=== PATIENT | male | born 1955 | race Caucasian/White ===

== ENCOUNTER 2017-10-13 08:43 | Inpatient (IN) | payer MEDICARE ==
[~2017-10-13] VITALS: Ht 182.9 cm; Wt 124.5 kg
[2017-10-13 08:46] VITALS: BP 205/85; PULSE 102; RESP 16; TEMP 99.9; O2SAT 97
--- NOTE | 2017-10-13 09:09 | PD ---
HPI Chief Complaint: Skin Problem Time Seen by Provider: 08:52 Travel History International Travel<30 days: No Contact w/Intl Traveler<30days: No Traveled to known affect area: No History of Present Illness HPI The patient is a 62-year-old male who presents to the emergency department for evaluation of left foot injury. The patient was evaluated by his garage worker, Dr. Banks, who sent the patient to the emergency department for admission to medicine with IV antibiotics, laboratory evaluation, an MRI of the left foot to evaluate for osteomyelitis. The patient does have a history of diabetes, neuropathy, and previous surgery on the left foot 5 years ago for Charcot. Patient does state he has hardware in the left foot. He does note a previous infection to the right foot with previous surgery. He notes an open wound on the medial aspect left foot several weeks ago which close, however, recently reopened. The patient states he had a culture obtained yesterday, does not know the results. He has not been on antibiotics. He denies any fever , chills, or sweats. Symptoms are mild to moderate, there are no current alleviating factors. The patient's primary physician is Dr. Perera. [facility] Past Medical History Narrative Medical Diabetes, hypertension, hyperlipidemia, neuropathy Diabetes: Yes Past Surgical History Narrative Surgical Left foot surgery Social History Tobacco Use: No Allergies-Medications (Allergen,Severity, Reaction): Coded Allergies: Penicillins (Verified Allergy, Unknown, 10/13/17) azithromycin (Verified Allergy, Unknown, Rash, 10/13/17) clindamycin (Verified Allergy, Unknown, Rash, 10/13/17) doxycycline (Verified Adverse Reaction, Intermediate, N/V, 10/13/17) Reported Meds & Prescriptions Reported Meds & Active Scripts Active Reported Pravastatin 10 Mg Tab 10 Mg PO HS Amlodipine (Amlodipine Besylate) 5 Mg Tab 7.5 Mg PO DAILY Fenofibrate 145 Mg Tab 145 Mg PO HS Dorzolamide-Timolol Opth Drops 22.3-6.8 Mg/Ml Soln 1 Drop EACH EYE BID Aspirin 81 Mg Chew 81 Mg CHEW HS Metoprolol Tartrate 25 Mg Tab 12.5 Mg PO BID Lisinopril 30 Mg Tab 30 Mg PO DAILY Furosemide 40 Mg Tab 40 Mg PO DAILY Glimepiride 1 Mg Tab 0.5 Mg PO DAILY Take with breakfast or first main meal Review of Systems Except as stated in HPI: all other systems reviewed are Neg General / Constitutional: No: Fever Cardiovascular: No: Chest Pain or Discomfort Respiratory: No: Shortness of Breath Gastrointestinal: No: Nausea, Vomiting, Abdominal Pain Musculoskeletal: No: Pain Skin: Positive Other (as noted in the history of present illness) Neurologic: No: Paresthesia, Sensory Disturbance Physical Exam Narrative GENERAL: Awake, alert, pleasant 62-year-old male who appears his stated age and is in no acute respiratory distress. SKIN: Focused skin assessment warm/dry. HEAD: Atraumatic. Normocephalic. EYES: Pupils equal and round. No scleral icterus. No injection or drainage. ENT: No nasal bleeding or discharge. Mucous membranes pink and moist. NECK: Trachea midline. No JVD. CARDIOVASCULAR: Regular, tachycardic with a heart rate of 100. RESPIRATORY: No accessory muscle use. Clear to auscultation. Breath sounds equal bilaterally. GASTROINTESTINAL: Abdomen soft, non-tender, nondistended. Hepatic and splenic margins not palpable. MUSCULOSKELETAL: Postoperative changes noted to the left foot. Open draining lesion to the medial aspect of the distal left foot, open area approximately 1 cm in diameter draining slightly and colored liquid. No tenderness. Minimal surrounding erythema. Vascular insufficiency changes noted to lower extremities bilaterally. NEUROLOGICAL: Awake and alert. No obvious cranial nerve deficits. Motor grossly within normal limits. Normal speech. PSYCHIATRIC: Appropriate mood and affect; insight and judgment normal. Data Data Last Documented VS Vital Signs Date Time Temp Pulse Resp B/P (MAP) Pulse Ox O2 Delivery O2 Flow Rate FiO2 10/13/17 08:46 99.9 102 16 205/85 (125) 97 Orders Orders Complete Blood Count With Diff (10/13/17 09:01) Comprehensive Metabolic Panel (10/13/17 09:01) Westergren Sedimentation Rate (10/13/17 09:01) C-Reactive Protein (Crp) (10/13/17 09:01) Blood Culture (10/13/17 09:01) Lactic Acid (10/13/17 09:01) Act Partial Throm Time (Ptt) (10/13/17 09:01) Prothrombin Time / Inr (Pt) (10/13/17 09:01) Consult Podiatry (10/13/17 ) Mri Foot W&W/O Contrast (10/13/17 ) Wound Culture And Gram Stain (10/13/17 09:01) Vancomycin Inj (Vancomycin Inj) (10/13/17 09:15) Ciprofloxacin 400 Mg Premix (Cipro 400 M (10/13/17 09:15) Electrocardiogram (10/13/17 ) (Hub Use Only)Inp Phy Cons/Ref (10/13/17 ) Admit Order (Ed Use Only) (10/13/17 10:23) Labs Laboratory Tests Test 10/13/17 09:15 White Blood Count 9.0 TH/MM3 Red Blood Count 5.26 MIL/MM3 Hemoglobin 14.3 GM/DL Hematocrit 42.2 % Mean Corpuscular Volume 80.2 FL Mean Corpuscular Hemoglobin 27.2 PG Mean Corpuscular Hemoglobin Concent 34.0 % Red Cell Distribution Width 13.4 % Platelet Count 261 TH/MM3 Mean Platelet Volume 8.4 FL Neutrophils (%) (Auto) 69.4 % Lymphocytes (%) (Auto) 21.6 % Monocytes (%) (Auto) 5.5 % Eosinophils (%) (Auto) 2.7 % Basophils (%) (Auto) 0.8 % Neutrophils # (Auto) 6.3 TH/MM3 Lymphocytes # (Auto) 1.9 TH/MM3 Monocytes # (Auto) 0.5 TH/MM3 Eosinophils # (Auto) 0.2 TH/MM3 Basophils # (Auto) 0.1 TH/MM3 CBC Comment DIFF FINAL Differential Comment Erythrocyte Sedimentation Rate 17 mm/hr Prothrombin Time 10.1 SEC Prothromb Time International Ratio 1.0 RATIO Activated Partial Thromboplast Time 26.4 SEC Blood Urea Nitrogen 26 MG/DL Creatinine 1.65 MG/DL Random Glucose 268 MG/DL Total Protein 7.8 GM/DL Albumin 4.2 GM/DL Calcium Level 10.2 MG/DL Alkaline Phosphatase 90 U/L Aspartate Amino Transf (AST/SGOT) 26 U/L Alanine Aminotransferase (ALT/SGPT) 35 U/L Total Bilirubin 0.5 MG/DL Sodium Level 134 MEQ/L Potassium Level 4.3 MEQ/L Chloride Level 101 MEQ/L Carbon Dioxide Level 23.0 MEQ/L Anion Gap 10 MEQ/L Estimat Glomerular Filtration Rate 42 ML/MIN Lactic Acid Level 2.1 mmol/L C-Reactive Protein 1.40 MG/DL MDM Medical Decision Making Medical Screen Exam Complete: Yes Emergency Medical Condition: Yes Medical Record Reviewed: Yes Interpretation(s) EKG reveals normal sinus rhythm with a rate 80. Nonspecific ST changes. Laboratory Tests Test 10/13/17 09:15 White Blood Count 9.0 TH/MM3 Red Blood Count 5.26 MIL/MM3 Hemoglobin 14.3 GM/DL Hematocrit 42.2 % Mean Corpuscular Volume 80.2 FL Mean Corpuscular Hemoglobin 27.2 PG Mean Corpuscular Hemoglobin Concent 34.0 % Red Cell Distribution Width 13.4 % Platelet Count 261 TH/MM3 Mean Platelet Volume 8.4 FL Neutrophils (%) (Auto) 69.4 % Lymphocytes (%) (Auto) 21.6 % Monocytes (%) (Auto) 5.5 % Eosinophils (%) (Auto) 2.7 % Basophils (%) (Auto) 0.8 % Neutrophils # (Auto) 6.3 TH/MM3 Lymphocytes # (Auto) 1.9 TH/MM3 Monocytes # (Auto) 0.5 TH/MM3 Eosinophils # (Auto) 0.2 TH/MM3 Basophils # (Auto) 0.1 TH/MM3 CBC Comment DIFF FINAL Differential Comment Erythrocyte Sedimentation Rate 17 mm/hr Prothrombin Time 10.1 SEC Prothromb Time International Ratio 1.0 RATIO Activated Partial Thromboplast Time 26.4 SEC Blood Urea Nitrogen 26 MG/DL Creatinine 1.65 MG/DL Random Glucose 268 MG/DL Total Protein 7.8 GM/DL Albumin 4.2 GM/DL Calcium Level 10.2 MG/DL Alkaline Phosphatase 90 U/L Aspartate Amino Transf (AST/SGOT) 26 U/L Alanine Aminotransferase (ALT/SGPT) 35 U/L Total Bilirubin 0.5 MG/DL Sodium Level 134 MEQ/L Potassium Level 4.3 MEQ/L Chloride Level 101 MEQ/L Carbon Dioxide Level 23.0 MEQ/L Anion Gap 10 MEQ/L Estimat Glomerular Filtration Rate 42 ML/MIN Lactic Acid Level 2.1 mmol/L C-Reactive Protein 1.40 MG/DL Last Impressions Foot MRI 10/13/17 0000 Signed Impressions: Service Date/Time: October 10:35 - CONCLUSION: 1. Artifact from metallic hardware obscuring portions of the great toe metatarsal and adjacent soft tissue. Focal cutaneous ulceration/soft tissue defect is immediately medial to the great toe metatarsal shaft. Soft tissue enhancement in this region suggests cellulitis. The metatarsal and this area cannot be effectively evaluated for osteomyelitis due to artifact. Three-phase radionuclide bone scan may be beneficial for further evaluation. 2. Bony fusion across the talonavicular, calcaneocuboid, and subtalar joints as well as the fourth tarsometatarsal joint. Osteoarthritic findings the second, third, and fifth tarsometatarsal joints. Fer Mas MD Differential Diagnosis Differential diagnosis includes osteomyelitis, diabetic foot ulcer, infected foot ulcer, neuropathy, abscess, cellulitis, sepsis. Narrative Course IV was established, labs are drawn and sent, and the patient was placed on cardiac telemetry monitoring and continuous pulse oximetry monitoring. EKG was ordered and interpreted. MRI of the foot with and without contrast was ordered. Doppler pulse to left foot was obtained. Sedimentation rate, CRP, lactic acid, blood culture were sent to lab. Wound culture was sent to lab and the patient received vancomycin 1 g intravenously and Cipro 400 mg intravenously. I discussed the patient with the garage worker, Dr. Pace, who states she will try to place the patient on the OR schedule for Tuesday. Therefore, the patient will be kept nothing by mouth after midnight tonight. We will also order arterial duplex studies per her request. The patient has for healthcare, therefore, the on-call [facility] physician was paged for admission. I discussed the patient with Dr. Bridges who agrees with admission. Sepsis Criteria SIRS Criteria (2 or more): Heart rate over 90 Severe Sepsis (+one): Lactate >2 Physician Communication Physician Communication I discussed the patient with Dr. Bridges who agrees with admission. Diagnosis Primary Impression: Diabetic foot ulcer Qualified Codes: E11.621 - Type 2 diabetes mellitus with foot ulcer; L97.529 - Non-pressure chronic ulcer of other part of left foot with unspecified severity Admitting Information Admitting Physician Requests: Admit Condition: Stable Lance Sotelo MD Oct 13, 2017 09:09
[2017-10-13] MEDS ORDERED: VANCOMYCIN INJ 1,000 MG in SODIUM CHLOR 0.9% 250 ML INJ 250 ML IV ONE (09:15)
[2017-10-13] MEDS ORDERED: CIPROFLOXACIN 400 MG PREMIX 200 ML IV ONE (09:15)
[2017-10-13] MEDS ORDERED: ASPI-516 CHEW (09:36)
[2017-10-13] MEDS ORDERED: DORZ2SOL15 EACH EYE (09:36)
[2017-10-13] MEDS ORDERED: FENO145T2 PO (09:36)
[2017-10-13] MEDS ORDERED: PRAV10TA PO (09:36)
[2017-10-13] MEDS ORDERED: AMLO5TAB2 PO (09:36)
[2017-10-13] MEDS ORDERED: METO25TA3 PO (09:36)
[2017-10-13] MEDS ORDERED: GLIM1TAB PO (09:36)
[2017-10-13] MEDS ORDERED: LISI30TA4 PO (09:36)
[2017-10-13] MEDS ORDERED: FURO40TA PO (09:36)
[2017-10-13 09:42] LABS: AUTOMATED NEUTROPHIL # 6.3 TH/MM3 (1.8-7.7); BASOPHIL # 0.1 TH/MM3 (0-0.2); BASOPHIL % 0.8 % (0.0-2.0); EOSINOPHIL # 0.2 TH/MM3 (0-0.4); EOSINOPHIL % 2.7 % (0.0-4.0); HEMATOCRIT 42.2 % (39.0-51.0); HEMOGLOBIN 14.3 GM/DL (13.0-17.0); LYMPH % 21.6 % (9.0-44.0); LYMPHOCYTE # 1.9 TH/MM3 (1.0-4.8); MEAN CELL VOLUME 80.2 FL (80.0-100.0); MEAN CORPUSCULAR HEMOGLOBIN 27.2 PG (27.0-34.0); MEAN PLATELET VOLUME 8.4 FL (7.0-11.0); MONO % 5.5 % (0.0-8.0); MONOCYTE # 0.5 TH/MM3 (0-0.9); NEUT % 69.4 % (16.0-70.0); PLATELET COUNT 261 TH/MM3 (150-450); RED BLOOD COUNT 5.26 MIL/MM3 (4.50-5.90); RED CELL DISTRIBUTION WIDTH 13.4 % (11.6-17.2)
[2017-10-13 09:49] LABS: PROTHROMBIN TIME - PATIENT 10.1 SEC (9.8-11.6)
[2017-10-13 09:58] LABS: ALBUMIN 4.2 GM/DL (3.4-5.0); ALT (GPT) 35 U/L (12-78); AST (GOT) 26 U/L (15-37); BLOOD UREA NITROGEN 26 MG/DL (7-18); CALCIUM 10.2 MG/DL (8.5-10.1); CHLORIDE 101 MEQ/L (98-107); CREATININE 1.65 MG/DL (0.60-1.30); GLOMERULAR FILTRATION RATE 42 ML/MIN (>89); GLUCOSE,RANDOM 268 MG/DL (74-106); SODIUM (NA) 134 MEQ/L (136-145)
[2017-10-13 10:02] LABS: ALKALINE PHOSPHATASE 90 U/L (45-117); TOTAL BILIRUBIN ADULT 0.5 MG/DL (0.2-1.0); TOTAL PROTEIN 7.8 GM/DL (6.4-8.2)
[2017-10-13] MEDS ORDERED: ACETAMINOPHEN 325 MG TAB PO PRN (11:00)
[2017-10-13] MEDS ORDERED: ONDANSETRON HCL 4 MG/2 ML VIAL IV PRN (11:00)
[2017-10-13] MEDS ORDERED: GADODIAMIDE PF 287 MG/ML 5 ML VIAL (for RAD MRI) IVCONTRAST ONE (11:14)
[2017-10-13] MEDS ORDERED: PILL SPLITTER OTHER PRN (11:15)
--- NOTE | 2017-10-13 11:59 | HHI.HP ---
HPI Service [facility] Hospitalists Primary Care Physician Percy Perera M.D. Admission Diagnosis infected left foot ulcer rule out osteomyelitis Chief Complaint: Left foot infection Travel History International Travel<30 Days: No Contact w/Intl Traveler <30 Da: No Traveled to Known Affected Are: No History of Present Illness Mr. Daniels is a pleasant 62 y/o WM with diabetes mellitus, diabetic neuropathy, charcot foot, HTN and CKD stage 3. [place] [facility] [place] left foot infection. Pt reported that he developed a sore on the medial aspect of his left foot around 3 weeks ago that he thought was related to irritation from his shoe. He states that he thought that this had mostly healed up until a few days ago when the wound opened up and pus started coming out. He was seen as an outpt by his PCP and by his Coremaker Supervisor, Dr. Banks who cultured the pus from the wound and recommended that he come to the hospital for evaluation for osteomyelitis and possible surgical intervention. He had a previous charcot foot surgery in 2012 in [place] and reports that he had some hardware placed at that time. Denies any fevers or chills, nausea/vomiting, chest pain or SOB. In the ED the foot wound was cultured again and he had blood cultures drawn. Pt was given a dose of Vancomycin and Cipro in the ED. Review of Systems Constitutional: DENIES: Fever, Chills Eyes: DENIES: Eye pain Ears, nose, mouth, throat: DENIES: Hearing loss Respiratory: DENIES: Cough, Shortness of breath Cardiovascular: COMPLAINS OF: Lower Extremity Edema (chronic), DENIES: Chest pain, Palpitations Gastrointestinal: DENIES: Abdominal pain, Constipation, Diarrhea, Nausea, Vomiting Genitourinary: DENIES: Hematuria, Dysuria Musculoskeletal: DENIES: Joint pain Integumentary: COMPLAINS OF: Abnormal pigmentation, DENIES: Rash Neurologic: DENIES: Headache Psychiatric: DENIES: Confusion Past Family Social History Past Medical History Diabetes mellitus, type 2 Diabetic neuropathy Charcot foot, left foot CKD, stage III HTN Glaucoma Past Surgical History Charcot foot surgery in 2012 in [place], left foot Right foot surgery with bone removal Reported Medications Pravastatin 10 Mg PO HS Amlodipine 7.5 Mg PO DAILY Fenofibrate 145 Mg PO HS Dorzolamide-Timolol Opth Drops 22.3-6.8 Mg/Ml Soln 1 Drop EACH EYE BID Aspirin Chew 81 Mg CHEW HS Metoprolol Tartrate 12.5 Mg PO BID Lisinopril 30 Mg PO DAILY Furosemide 40 Mg PO DAILY Glimepiride 0.5 Mg PO DAILY Allergies: Coded Allergies: Penicillins (Verified Allergy, Unknown, 10/13/17) azithromycin (Verified Allergy, Unknown, Rash, 10/13/17) clindamycin (Verified Allergy, Unknown, Rash, 10/13/17) doxycycline (Verified Adverse Reaction, Intermediate, N/V, 10/13/17) Family History Noncontributory Social History (+)Alcohol use, 3-4 rum and diet cokes per night Denies any tobacco use Pt lives locally with his , they are from [place] and moved to [place] a few years ago Physical Exam Vital Signs Vital Signs Date Time Temp Pulse Resp B/P (MAP) Pulse Ox O2 Delivery O2 Flow Rate FiO2 10/13/17 08:46 99.9 102 16 205/85 (125) 97 Physical Exam GENERAL: This is a well-nourished, well-developed patient, in no apparent distress. SKIN: No rashes, ecchymoses or lesions. Cool and dry. HEAD: Atraumatic. Normocephalic. No temporal or scalp tenderness. EYES: Pupils equal round and reactive. Extraocular motions intact. No scleral icterus. No injection or drainage. ENT: Nose without bleeding, purulent drainage or septal hematoma. Throat without erythema, tonsillar hypertrophy or exudate. Uvula midline. Airway patent. NECK: Trachea midline. No JVD or lymphadenopathy. Supple, nontender, no meningeal signs. CARDIOVASCULAR: Regular rate and rhythm without murmurs, gallops, or rubs. RESPIRATORY: Clear to auscultation. Breath sounds equal bilaterally. No wheezes , rales, or rhonchi. GASTROINTESTINAL: Abdomen soft, non-tender, nondistended. No hepato-splenomegaly , or palpable masses. No guarding. MUSCULOSKELETAL: Extremities without clubbing, cyanosis, or edema. No joint tenderness, effusion, or edema noted. No calf tenderness. Negative Homans sign bilaterally. NEUROLOGICAL: Awake and alert. Cranial nerves II through XII intact. Motor and sensory grossly within normal limits. Five out of 5 muscle strength in all muscle groups. Normal speech. Laboratory Laboratory Tests Test 10/13/17 09:15 White Blood Count 9.0 Red Blood Count 5.26 Hemoglobin 14.3 Hematocrit 42.2 Mean Corpuscular Volume 80.2 Mean Corpuscular Hemoglobin 27.2 Mean Corpuscular Hemoglobin Concent 34.0 Red Cell Distribution Width 13.4 Platelet Count 261 Mean Platelet Volume 8.4 Neutrophils (%) (Auto) 69.4 Lymphocytes (%) (Auto) 21.6 Monocytes (%) (Auto) 5.5 Eosinophils (%) (Auto) 2.7 Basophils (%) (Auto) 0.8 Neutrophils # (Auto) 6.3 Lymphocytes # (Auto) 1.9 Monocytes # (Auto) 0.5 Eosinophils # (Auto) 0.2 Basophils # (Auto) 0.1 CBC Comment DIFF FINAL Differential Comment Erythrocyte Sedimentation Rate 17 Prothrombin Time 10.1 Prothromb Time International Ratio 1.0 Activated Partial Thromboplast Time 26.4 Blood Urea Nitrogen 26 Creatinine 1.65 Random Glucose 268 Total Protein 7.8 Albumin 4.2 Calcium Level 10.2 Alkaline Phosphatase 90 Aspartate Amino Transf (AST/SGOT) 26 Alanine Aminotransferase (ALT/SGPT) 35 Total Bilirubin 0.5 Sodium Level 134 Potassium Level 4.3 Chloride Level 101 Carbon Dioxide Level 23.0 Anion Gap 10 Estimat Glomerular Filtration Rate 42 Lactic Acid Level 2.1 C-Reactive Protein 1.40 Date/Time Source Procedure Growth Status 10/13/17 09:15 Blood Peripheral Aerobic Blood Culture Pending Received 10/13/17 09:15 Blood Peripheral Anaerobic Blood Culture Pending Received 10/13/17 09:15 Wound Foot Gram Stain Pending Received 10/13/17 09:15 Wound Foot Wound Culture Pending Received Result Diagram: 10/13/1715 10/13/1715 Caprini VTE Risk Assessment Caprini VTE Risk Assessment: Mod/High Risk (score >= 2) Caprini Risk Assessment Model Point Value = 1 Point Value = 2 Point Value = 3 Point Value = 5 Age 41-60 Minor surgery BMI > 25 kg/m2 Swollen legs Varicose veins or History of unexplained or recurrent spontaneous Oral contraceptives or hormone replacement Sepsis (< 1 month) Serious lung disease, including pneumonia (< 1 month) Abnormal pulmonary function Acute myocardial infarction Congestive heart failure (< 1 month) History of inflammatory bowel disease Medical patient at bed rest Age 61-74 Arthroscopic surgery Major open surgery (> 45 min) Laparoscopic surgery (> 45 min) Malignancy Confined to bed (> 72 hours) Immobilizing plaster cast Central venous access Age >= 75 History of VTE Family history of VTE Factor V Leiden Prothrombin [id number] Lupus anticoagulant Anticardiolipin antibodies Elevated serum homocysteine Heparin-induced thrombocytopenia Other congenital or acquired thrombophilia Stroke (< 1 month) Elective arthroplasty Hip, pelvis, or leg fracture Acute spinal cord injury (< 1 month) Prophylaxis Regimen Total Risk Factor Score Risk Level Prophylaxis Regimen 0-1 Low Early ambulation 2 Moderate Order ONE of the following: *Sequential Compression Device (SCD) *Heparin 5000 units SQ BID 3-4 Higher Order ONE of the following medications: *Heparin 5000 units SQ TID *Enoxaparin/Lovenox 40 mg SQ daily (WT < 150 kg, CrCl > 30 mL/min) *Enoxaparin/Lovenox 30 mg SQ daily (WT < 150 kg, CrCl > 10-29 mL/min) *Enoxaparin/Lovenox 30 mg SQ BID (WT < 150 kg, CrCl > 30 mL/min) AND/OR *Sequential Compression Device (SCD) 5 or more Highest Order ONE of the following medications: *Heparin 5000 units SQ TID (Preferred with Epidurals) *Enoxaparin/Lovenox 40 mg SQ daily (WT < 150 kg, CrCl > 30 mL/min) *Enoxaparin/Lovenox 30 mg SQ daily (WT < 150 kg, CrCl > 10-29 mL/min) *Enoxaparin/Lovenox 30 mg SQ BID (WT < 150 kg, CrCl > 30 mL/min) AND *Sequential Compression Device (SCD) Assessment and Plan Problem List: (1) Diabetic foot ulcer ICD Codes: E11.621 - Type 2 diabetes mellitus with foot ulcer; L97.509 - Non- pressure chronic ulcer of other part of unspecified foot with unspecified severity Status: Acute Plan: - Pt is a 62 y/o WM with diabetes mellitus, diabetic neuropathy, Charcot foot, HTN and CKD stage 3. - Pt [place] [facility] [place] for left foot infection. Pt reported that he developed a sore on the medial aspect of his left foot around 3 weeks ago that he thought was related to irritation from his shoe. A few days ago when the wound opened up and pus started coming out. He was seen as an outpt by his PCP and by his Coremaker Supervisor, Dr. Banks who cultured the pus from the wound and recommended that he come to the hospital for evaluation for possible osteomyelitis and surgical intervention. - In the ED the foot wound was cultured again and he had blood cultures drawn. - Pt was given a dose of Vancomycin and Cipro in the ED. - MRI foot ordered and is pending - Podiatry has been consulted from the ED - Pt is planned for surgical intervention tomorrow - NPO after MN except meds - Supportive care - DVT prophylaxis with SCDs (2) Diabetes mellitus type 2, noninsulin dependent ICD Codes: E11.9 - Type 2 diabetes mellitus without complications Status: Chronic Plan: - Hold OHA - NovoLog SSI - Accu checks (3) Hypertension, benign ICD Codes: I10 - Essential (primary) hypertension Status: Chronic Plan: - Cont. home meds Physician Certification 2 Midnight Certification Type: Admission for Inpatient Services Order for Inpatient Services The services are ordered in accordance with Medicare regulations or non- Medicare payer requirements, as applicable. In the case of services not specified as inpatient-only, they are appropriately provided as inpatient services in accordance with the 2-midnight benchmark. Estimated LOS (days): 3 3 days is the estimated time the patient will need to remain in the hospital, assuming treatment plan goals are met and no additional complications. Post-Hospital Plan: Not yet determined Problem Qualifiers (1) Diabetic foot ulcer: Qualified Codes: E11.621 - Type 2 diabetes mellitus with foot ulcer; L97.529 - Non-pressure chronic ulcer of other part of left foot with unspecified severity Suzan Rivas Oct 13, 2017 11:59
[2017-10-13 12:41] VITALS: BP 149/73; PULSE 78; RESP 16; TEMP 98.3; O2SAT 97
[2017-10-13] MEDS: INSULIN ASPART SUPPLEMENTAL SCALE SQ SCH ×3 (13:12→20:33)
--- NOTE | 2017-10-13 13:19 | RADRPT ---
EXAM DATE/TIME: 10/13/2017 10:35 [facility] COMPARISON: No previous studies available for comparison. INDICATIONS : Osteomyelitis. Wound on medial aspect of left foot. CONTRAST: 25 cc Omniscan (gadodiamide) IV MEDICAL HISTORY : Hypertension. Diabetes mellitus type 2. Charcot foot. SURGICAL HISTORY : Bilateral feet. ENCOUNTER: Subsequent ACUITY: 4-6 days PAIN SCORE: 0/10 LOCATION: Left foot. TECHNIQUE: Multiplanar, multisequence MRI examination was performed without contrast and after the intravenous a dministration of gadolinium. FINDINGS: Magnetic susceptibility artifact is seen in the region of the great toe metatarsal, medial cuneiform, navicular, and medial talus. This finding indicates metallic hardware in this region. There is obscu ration of adjacent bony structures and soft tissues. There is evidence of bone fusion across the calc aneocuboid joint, talonavicular joint, subtalar joint, and fourth tarsometatarsal joint. Surgical dia dware also noted at the third fourth and fifth tarsometatarsal joints and the talonavicular joint Medial soft tissue ulceration/defect is seen at the level of the mid great toe metatarsal shaft. The first metatarsal shaft immediately deep to the soft tissue defect is obscured by metallic artifact. T here is ill-defined superficial soft tissue enhancement medially in the region of soft tissue defect suggesting cellulitis. No organized abscess identified in the soft tissues. CONCLUSION: 1. Artifact from metallic hardware obscuring portions of the great toe metatarsal and adjacent soft t issue. Focal cutaneous ulceration/soft tissue defect is immediately medial to the great toe metatarsa l shaft. Soft tissue enhancement in this region suggests cellulitis. The metatarsal and this area can not be effectively evaluated for osteomyelitis due to artifact. Three-phase radionuclide bone scan ma y be beneficial for further evaluation. 2. Bony fusion across the talonavicular, calcaneocuboid, and subtalar joints as well as the fourth ta rsometatarsal joint. Osteoarthritic findings the second, third, and fifth tarsometatarsal joints. Fer Mas MD on October 13, 2017 at 13:05 Board Certified Radiologist. This report was verified electronically.
[2017-10-13 14:43] VITALS: BP 140/65; PULSE 85; RESP 20; TEMP 98.4; O2SAT 94
[2017-10-13 16:00] VITALS: BP 146/70; PULSE 84; RESP 20; TEMP 97.9; O2SAT 94
[2017-10-13] MEDS ORDERED: Vancomycin Consult Pharmacy 1 EA OTHER SCH (16:30)
[2017-10-13] MEDS ORDERED: VANCOMYCIN 1 GM/200 ML PREMIX IV ONE (18:30)
[2017-10-13 20:00] VITALS: BP 148/77; PULSE 75; RESP 20; TEMP 98.5; O2SAT 96
--- NOTE | 2017-10-13 20:23 | EKG ---
Date Performed: 10/13/2017 Time Performed: 09:32:42 PTAGE: 62 years EKG: Sinus rhythm MINIMAL ST DEPRESSION BORDERLINE ECG NO PREVIOUS TRACING DOCTOR: Jorden Seals Interpretating Date/Time 10/13/2017 20:16:30
[2017-10-13] MEDS: FENOFIBRATE 145 MG TAB PO SCH (20:30)
[2017-10-13] MEDS: METOPROLOL TARTRATE 25 MG TAB PO SCH (20:30)
[2017-10-13] MEDS: PRAVASTATIN SOD 10 MG TAB PO SCH (20:30)
[2017-10-13] MEDS: DORZOLAMIDE/TIMOLOL OPTH SOLN 10 ML BTL EACH EYE SCH (20:32)
[2017-10-13 22:23] LABS: HEMOGLOBIN A1C 10.5 % (4.3-6.0)
--- NOTE | 2017-10-13 23:43 | PD.CONS ---
History of Present Illness Service Foot and Ankle Surgery/Podiatry Consult Requested By Reason for Consult Left foot draining ulcer Primary Care Physician Percy Perera M.D. Diagnoses: History of Present Illness 62 year old with PMH of Diabetes mellitus, Diabetic neuropathy, Charcot foot, CKD, stage III, HTN, Glaucoma presents with left foot draining sinus. Patient is seen by Dr. Delgadillo in office. States he has open wound with purulent drainage. He denies N,V,F,Ch. States his A1c was 6.4 however it has now jumped up to 10.9, he was told this on Tuesday. His is present bedside and believes the infection has cause his A1c to increase. Patient states he has not had any problems with this foot in the past. He has had bone removed from the right foot. Review of Systems Constitutional: DENIES: Fatigue, Fever Endocrine: DENIES: Heat/cold intolerance Eyes: DENIES: Blurred vision Ears, nose, mouth, throat: DENIES: Hearing loss Respiratory: DENIES: Cough, Shortness of breath Cardiovascular: DENIES: Chest pain Musculoskeletal: DENIES: Joint pain, Muscle aches Neurologic: DENIES: Headache Psychiatric: DENIES: Anxiety, Mood changes Past Family Social History Allergies: Coded Allergies: Penicillins (Verified Allergy, Unknown, 10/13/17) azithromycin (Verified Allergy, Unknown, Rash, 10/13/17) clindamycin (Verified Allergy, Unknown, Rash, 10/13/17) doxycycline (Verified Adverse Reaction, Intermediate, N/V, 10/13/17) Past Medical History Diabetes mellitus, type 2 Diabetic neuropathy Charcot foot, left foot CKD, stage III HTN Glaucoma Past Surgical History Charcot foot surgery in 2012 in [place], left foot Right foot surgery with bone removal Active Ordered Medications Current Medications Medications (Trade) Dose Ordered Sig/Enrique Route Start Time Stop Time Status Last Admin (Norvasc) 7.5 mg DAILY PO 10/14/17 09:00 (Cosopt 2-0.5% Opth Soln) 1 drop BID EACH EYE 10/13/17 21:00 (Tricor) 145 mg HS PO 10/13/17 21:00 10/13/17 20:30 (Lopressor) 12.5 mg BID PO 10/13/17 21:00 10/13/17 20:30 (Pravachol) 10 mg HS PO 10/13/17 21:00 10/13/17 20:30 (Prinivil) 30 mg DAILY PO 10/14/17 09:00 (Tylenol) 650 mg Q4H PRN PO 10/13/17 11:00 (Zofran Inj) 4 mg Q6H PRN IV 10/13/17 11:00 (NovoLOG SUPPLEMENTAL SCALE) 1 ACHS SLIDING SCALE SQ 10/13/17 12:00 10/13/17 20:33 (Pill Splitter) 1 ea UNSCH PRN OTHER 10/13/17 11:15 Pharmacy Profile Note 0 ml @ 0 mls/hr UNSCH OTHER 10/13/17 16:30 (Flu (Quadrivalent) Vaccine Inj) 0.5 ml ONCE ONCE IM 10/14/17 10:00 10/14/17 10:01 (Pneumovax-23 Inj) 25 mcg ONCE ONCE IM 10/14/17 10:00 10/14/17 10:01 Vancomycin HCl 2000 mg/Sodium Chloride 520 ml @ 250 mls/hr Q18H IV 10/14/17 10:00 Miscellaneous Information SPECIFIC LAB TO BE INDERJIT... ONCE ONCE .XX 10/15/17 23:45 10/15/17 23:46 Physical Exam Vital Signs Vital Signs Date Time Temp Pulse Resp B/P (MAP) Pulse Ox O2 Delivery O2 Flow Rate FiO2 10/13/17 20:00 98.5 75 20 148/77 (100) 96 10/13/17 16:00 97.9 84 20 146/70 (95) 94 10/13/17 14:43 98.4 85 20 140/65 (90) 94 10/13/17 13:49 10/13/17 12:41 98.3 78 16 149/73 (98) 97 Room Air 10/13/17 08:46 99.9 102 16 205/85 (125) 97 Physical Exam GENERAL: This is a well-nourished, well-developed patient, in no apparent distress. SKIN: No rashes, ecchymoses or lesions. Cool and dry. Left foot ulcer with draining sinus. HEAD: Atraumatic. Normocephalic. EYES: Pupils equal round and reactive. Extraocular motions intact. No scleral icterus. No injection or drainage. ENT: Airway patent. NECK: Trachea midline. RESPIRATORY: Non labored breathing. MUSCULOSKELETAL: Pes planus left foot. Rockerbottom deformity left foot. NEUROLOGICAL: Awake and alert. Normal speech. Vasc: DP/PT diminished. DIRECTOR OF INSTITUTIONAL GIVING under 3 secs x5 digits bilateral LE. Mild edema noted to left LE. Neuro: Decreased pinpoint sensation. No hyperalgesia noted. BLE Derm: Midfoot draining sinus measuring 0.4cm x 0.4cm x 0.3cm depth with circumferential tunneling noted. Less than 1cc purulent drainage noted upon compression. sanguinous drainage noted. (+) probe to bone, (+) probe to hardware.No surrounding erythema to draining sinus. No ascending erythema noted. MSK: Pes planus left foot. Rockerbottom deformity LLE. Laboratory Laboratory Tests Test 10/13/17 09:15 White Blood Count 9.0 Red Blood Count 5.26 Hemoglobin 14.3 Hematocrit 42.2 Mean Corpuscular Volume 80.2 Mean Corpuscular Hemoglobin 27.2 Mean Corpuscular Hemoglobin Concent 34.0 Red Cell Distribution Width 13.4 Platelet Count 261 Mean Platelet Volume 8.4 Neutrophils (%) (Auto) 69.4 Lymphocytes (%) (Auto) 21.6 Monocytes (%) (Auto) 5.5 Eosinophils (%) (Auto) 2.7 Basophils (%) (Auto) 0.8 Neutrophils # (Auto) 6.3 Lymphocytes # (Auto) 1.9 Monocytes # (Auto) 0.5 Eosinophils # (Auto) 0.2 Basophils # (Auto) 0.1 CBC Comment DIFF FINAL Differential Comment Erythrocyte Sedimentation Rate 17 Prothrombin Time 10.1 Prothromb Time International Ratio 1.0 Activated Partial Thromboplast Time 26.4 Blood Urea Nitrogen 26 Creatinine 1.65 Random Glucose 268 Total Protein 7.8 Albumin 4.2 Calcium Level 10.2 Alkaline Phosphatase 90 Aspartate Amino Transf (AST/SGOT) 26 Alanine Aminotransferase (ALT/SGPT) 35 Total Bilirubin 0.5 Sodium Level 134 Potassium Level 4.3 Chloride Level 101 Carbon Dioxide Level 23.0 Anion Gap 10 Estimat Glomerular Filtration Rate 42 Hemoglobin A1c 10.5 Lactic Acid Level 2.1 C-Reactive Protein 1.40 Date/Time Source Procedure Growth Status 10/13/17 09:15 Blood Peripheral Aerobic Blood Culture Pending Received 10/13/17 09:15 Blood Peripheral Anaerobic Blood Culture Pending Received 10/13/17 09:15 Wound Foot Gram Stain - Final Resulted 10/13/17 09:15 Wound Foot Wound Culture Pending Resulted Result Diagram: 10/13/17 0915 10/13/17 0915 Imaging Last Impressions Foot MRI 10/13/17 0000 Signed Impressions: Service Date/Time: October 10:35 - CONCLUSION: 1. Artifact from metallic hardware obscuring portions of the great toe metatarsal and adjacent soft tissue. Focal cutaneous ulceration/soft tissue defect is immediately medial to the great toe metatarsal shaft. Soft tissue enhancement in this region suggests cellulitis. The metatarsal and this area cannot be effectively evaluated for osteomyelitis due to artifact. Three-phase radionuclide bone scan may be beneficial for further evaluation. 2. Bony fusion across the talonavicular, calcaneocuboid, and subtalar joints as well as the fourth tarsometatarsal joint. Osteoarthritic findings the second, third, and fifth tarsometatarsal joints. Fer Mas MD Assessment and Plan Assessment and Plan 62 year old male with left foot draining sinus possible OM Patient examined and evaluated with bedside All questions answered 3 phase bone scan ordered to r/o OM as MRI was inhibited by scatter Vascular studies ordered Will await results of vascular studies and Bone scan before proceeding A1c ordered With a self reported A1c of 10.9 patient is not a surgical candidate for hardware removal Will await final pending results and discuss options with patient WB as tolerated to bilateral LE Dress wound with Aquacel Ag2+ and dry sterile dressing Will place wound care orders Celestina Pace DPM Oct 13, 2017 23:43
[2017-10-14] VITALS: BP 111/54; PULSE 64; RESP 20; TEMP 97.6; O2SAT 97
[2017-10-14 04:00] VITALS: BP 142/74; PULSE 69; RESP 20; TEMP 98; O2SAT 94
[2017-10-14 08:07] VITALS: BP 163/77; PULSE 83; RESP 20; TEMP 98; O2SAT 96
--- NOTE | 2017-10-14 09:14 | HHI.PR ---
Subjective Remarks going for bone scan. no problems overnight. Objective Vitals heart reg lung cta abd s/nt ext right foot open wound/ulceration noted Vital Signs Date Time Temp Pulse Resp B/P (MAP) Pulse Ox O2 Delivery O2 Flow Rate FiO2 10/14/17 04:00 98.0 69 20 142/74 (96) 94 10/14/17 00:00 97.6 64 20 111/54 (73) 97 10/13/17 20:00 98.5 75 20 148/77 (100) 96 10/13/17 16:00 97.9 84 20 146/70 (95) 94 10/13/17 14:43 98.4 85 20 140/65 (90) 94 10/13/17 13:49 10/13/17 12:41 98.3 78 16 149/73 (98) 97 Room Air Result Diagram: 10/13/17 0915 10/13/17 0915 A/P Problem List: (1) Diabetic foot ulcer ICD Codes: E11.621 - Type 2 diabetes mellitus with foot ulcer; L97.509 - Non- pressure chronic ulcer of other part of unspecified foot with unspecified severity Status: Acute Plan: - Pt is a 62 y/o WM with diabetes mellitus, diabetic neuropathy, Charcot foot, HTN and CKD stage 3. - Pt reported to the ED at [facility] [place] on 10/13/17 for left foot infection. Pt reported that he developed a sore on the medial aspect of his left foot around 3 weeks ago that he thought was related to irritation from his shoe. A few days ago when the wound opened up and pus started coming out. He was seen as an outpt by his PCP and by his Cabin Supervisor, Dr. Banks who cultured the pus from the wound and recommended that he come to the hospital for evaluation for possible osteomyelitis and surgical intervention. - In the ED the foot wound was cultured again and he had blood cultures drawn. - Pt was given a dose of Vancomycin and Cipro in the ED. - MRI foot unable to determine osteo due to artifact from hardware - bone scan 3 phase ordered and pending - await OR decisions per podiatry. - f/u outpt wound cx's..cont abx and adjust per cx. - (2) Diabetes mellitus type 2, noninsulin dependent ICD Codes: E11.9 - Type 2 diabetes mellitus without complications Status: Chronic Plan: poor control. hgba1c 10.5 will start basal/bolus insulin and titrate as needed. (3) Hypertension, benign ICD Codes: I10 - Essential (primary) hypertension Status: Chronic Plan: - Cont. home meds Problem Qualifiers (1) Diabetic foot ulcer: Qualified Codes: E11.621 - Type 2 diabetes mellitus with foot ulcer; L97.529 - Non-pressure chronic ulcer of other part of left foot with unspecified severity Naif Bridges MD Oct 14, 2017 09:14
[2017-10-14] MEDS: METOPROLOL TARTRATE 25 MG TAB PO SCH ×2 (09:36→21:48)
[2017-10-14] MEDS: amLODIPine BESYLATE 5 MG TAB PO SCH (09:36)
[2017-10-14] MEDS: LISINOPRIL 10 MG TAB PO SCH (09:36)
[2017-10-14] MEDS: DORZOLAMIDE/TIMOLOL OPTH SOLN 10 ML BTL EACH EYE SCH ×2 (09:37→21:48)
[2017-10-14] MEDS: INSULIN ASPART SUPPLEMENTAL SCALE SQ SCH ×4 (09:37→21:50)
[2017-10-14] MEDS ORDERED: PNEUMOCOCCAL POLYVALENT INJ 25 MCG/0.5 ML SYR IM ONE (10:00)
[2017-10-14] MEDS ORDERED: INFLUENZA VIRUS VACCINE (QUADRIVALENT) 0.5 ML SYR IM ONE (10:00)
[2017-10-14] MEDS: VANCOMYCIN INJ 2,000 MG in SODIUM CHLORID 0.9% 500 ML INJ 500 ML IV SCH (10:20)
[2017-10-14 12:07] VITALS: BP 152/76; PULSE 82; RESP 20; TEMP 98.2; O2SAT 97
--- NOTE | 2017-10-14 13:29 | RADRPT ---
EXAM DATE/TIME: 10/13/2017 00:00 [facility] COMPARISON: No previous studies available for comparison. INDICATIONS : Infected left foot ulcer rule out osteomyelitis TECHNIQUE: Five-station segmental examination of the lower extremities was performed. Pulsed-cuff waveform tracings and pressures were recorded. Ankle-brachial indices and toe-brachial indices were calculated. PRESSURES (mmHg): Brachial (arm): Right iv site Left 154 Lower Thigh: Right 106 Left 153 Calf: Right 118 Left 149 Ankle: Right 95 Left 153 Toe: Right 79 Left 81 LUCIA: Right 0.62 Left 0.99 TBI: Right 0.51 Left 0.53 PULSED CUFF WAVEFORMS: There is diminished pulse wave tracings below the knee on the right when compared to the left. LUCIA o n the right is 0 0.62.. LUCIA on the left is 0.99. CONCLUSION: MRI suspicious for inflow disease much worse on the right than the left. LUCIA on the left is 0.99. G iven the hardware and residual blood flow and tagged white cell study may offer conclusive informatio n. Alberto Farmer MD FACR on October 14, 2017 at 13:24 Board Certified Radiologist. This report was verified electronically.
[2017-10-14 16:07] VITALS: BP 152/72; PULSE 85; RESP 20; TEMP 98.6; O2SAT 95
--- NOTE | 2017-10-14 17:58 | RADRPT ---
EXAM DATE/TIME: 10/14/2017 14:10 [facility] COMPARISON: MRI FOOT LEFT W & W/O CONTRAST, October 13, 2017, 10:35. PRIOR BONE SCANS: No correlative bone scan available for comparison. INDICATIONS : Left foot wound of medial aspect of foot. Left foot surgery in 2012. DOSE: 31.2 mCi Tc99m MDP IV IMAGING: SPECT/CT imaging with fusion was performed. MEDICAL HISTORY : Hypertension. Diabetes mellitus type 2. Renal failure, chronic. Charcot foot. SURGICAL HISTORY : Right foot surgery. ENCOUNTER: Initial ACUITY: 1 day PAIN SCALE: 0/10 LOCATION: Left Foot. TECHNIQUE: Bone scan was performed in sagittal, axial and coronal planes. Attenuation correction was performed with computed tomography and both the attenuation correction and non-attenuation corrected data sets were reviewed. FINDINGS: On today's examination, there is increased flow, increased blood pool and increased uptake of tracer activity along the medial aspect of the left foot. Delayed images demonstrate uptake predominantly in volving the first metatarsal. There is hardware for previous internal fixation involving the first me tatarsal the left foot. There is hardware along the lateral aspect of left foot which does not demons trate the same level uptake. The increased blood flow, blood pool and delayed images to the first met atarsal is suspicious for osteomyelitis. However, I would recommend a gallium scan to evaluate the hoa ne gallium ratio to exclude increased uptake secondary to possible loosening of the hardware. There i s a uptake at the level of the right ankle and left ankle which appears to be related to primary dege nerative changes. CONCLUSION: 1. The three-phase bone scan demonstrates increased blood flow, increased blood pool and increased tr acer activity in the late images specifically involving the first left metatarsal. Osteomyelitis woul d be the primary consideration. However, recommend a gallium scan to evaluate the bone gallium ratio. 2. There is some increased delayed uptake at both mortise joints suggestive of primary bony degenerat karl changes. Tristan Davis MD on October 14, 2017 at 17:45 Board Certified Radiologist. This report was verified electronically.
[2017-10-14 20:00] VITALS: BP 139/66; PULSE 84; RESP 20; TEMP 98.4; O2SAT 96
[2017-10-14] MEDS ORDERED: INSULIN DETEMIR 100 UNITS/ML VIAL SQ SCH (21:00)
[2017-10-14] MEDS: PRAVASTATIN SOD 10 MG TAB PO SCH (21:48)
[2017-10-14] MEDS: FENOFIBRATE 145 MG TAB PO SCH (21:48)
[2017-10-15] VITALS: BP 139/62; PULSE 74; RESP 20; TEMP 98; O2SAT 95
[2017-10-15] MEDS: VANCOMYCIN INJ 2,000 MG in SODIUM CHLORID 0.9% 500 ML INJ 500 ML IV SCH (02:49)
[2017-10-15 04:00] VITALS: BP 139/62; PULSE 75; RESP 20; TEMP 98.2; O2SAT 95
[2017-10-15 08:45] VITALS: BP 153/80; PULSE 71; RESP 20; TEMP 98.7; O2SAT 96
[2017-10-15] MEDS: INSULIN ASPART SUPPLEMENTAL SCALE SQ SCH ×4 (08:47→22:19)
[2017-10-15] MEDS: DORZOLAMIDE/TIMOLOL OPTH SOLN 10 ML BTL EACH EYE SCH ×2 (08:48→21:00)
[2017-10-15] MEDS: amLODIPine BESYLATE 5 MG TAB PO SCH (08:48)
[2017-10-15] MEDS: METOPROLOL TARTRATE 25 MG TAB PO SCH ×2 (08:48→22:17)
[2017-10-15] MEDS: LISINOPRIL 10 MG TAB PO SCH (08:48)
--- NOTE | 2017-10-15 10:18 | HHI.PR ---
Subjective Remarks complaining about the food at [facility] Objective Vitals heart reg lung cta abd s/nt ext left foot open wound no purelent drainage Vital Signs Date Time Temp Pulse Resp B/P (MAP) Pulse Ox O2 Delivery O2 Flow Rate FiO2 10/15/17 08:45 98.7 71 20 153/80 (104) 96 10/15/17 04:00 98.2 75 20 139/62 (87) 95 10/15/17 00:00 98.0 74 20 139/62 (87) 95 10/14/17 20:00 98.4 84 20 139/66 (90) 96 10/14/17 16:07 98.6 85 20 152/72 (98) 95 10/14/17 12:07 98.2 82 20 152/76 (101) 97 Result Diagram: 10/13/1715 10/13/17 0915 A/P Problem List: (1) Diabetic foot ulcer ICD Codes: E11.621 - Type 2 diabetes mellitus with foot ulcer; L97.509 - Non- pressure chronic ulcer of other part of unspecified foot with unspecified severity Status: Acute Plan: - Pt is a 62 y/o WM with diabetes mellitus, diabetic neuropathy, Charcot foot with hardware since 2012, HTN and CKD stage 3. - Pt reported to the ED at [facility] on 10/13/17 for left foot infection. Pt reported that he developed a sore on the medial aspect of his left foot around 3 weeks ago that he thought was related to irritation from his shoe. A few days ago when the wound opened up and pus started coming out. He was seen as an outpt by his PCP and by his Chief Librarian Branch Or Department, Dr. Banks who cultured the pus from the wound and recommended that he come to the hospital for evaluation for possible osteomyelitis and surgical intervention. - In the ED the foot wound was cultured again and he had blood cultures drawn. - Pt was given a dose of Vancomycin and Cipro in the ED. - MRI foot unable to determine osteo due to artifact from hardware - bone scan 3 phase ordered and concern for 1st metatarsal osteo - discussed with podiatry. consulted vascular for abnormal doppler - ID consulted for assistance given complexity of osteo, hardware, so far ngtd - Have looked for cx's taken last week by podiatry office and pcp office...no results yet - await OR decisions per podiatry. - more aggressive bg control. podiatry concerned about opening up foot to remove hardware with hgba1c of 10.5 (2) Diabetes mellitus type 2, noninsulin dependent ICD Codes: E11.9 - Type 2 diabetes mellitus without complications Status: Chronic Plan: poor control. hgba1c 10.5 will start basal/bolus insulin and titrate as needed. (3) Hypertension, benign ICD Codes: I10 - Essential (primary) hypertension Status: Chronic Plan: - Cont. home meds Problem Qualifiers (1) Diabetic foot ulcer: Qualified Codes: E11.621 - Type 2 diabetes mellitus with foot ulcer; L97.529 - Non-pressure chronic ulcer of other part of left foot with unspecified severity Naif Bridges MD Oct 15, 2017 10:18
[2017-10-15] MEDS: INSULIN DETEMIR 100 UNITS/ML VIAL SQ SCH ×2 (10:28→22:18)
[2017-10-15 12:24] VITALS: BP 141/85; PULSE 71; RESP 20; TEMP 98.4; O2SAT 97
--- NOTE | 2017-10-15 14:53 | MB ---
cc: FLACO GOODWIN MD DATE OF CONSULTATION: 10/15/2017. REASON FOR CONSULTATION: Diabetes mellitus. Charcot's joint. Osteomyelitis of the left foot. Hypertension. Peripheral vascular disease. HISTORY OF PRESENT ILLNESS: This 62-year-old gentleman with a known Charcot's foot and complex medical history presents with a left medial aspect of the ankle draining sinus. He was seen by Dr. Banks in the office and there was a drainage which is purulent noted. The patient had a fever and was admitted to the hospital. The question arises about his vascular status and possible implications. PAST MEDICAL HISTORY: 1. Diabetes mellitus. 2. Neuropathy. 3. Poorly controlled A1c. 4. Charcot's joint of the left foot of longstanding. 5. Some sort of infection of the right foot before. 6. Hypertension. 7. Glaucoma. PAST SURGICAL HISTORY: Right foot surgery with some of bone removal and then left foot Charcot's joint stabilization with hardware in 2012. SOCIAL HISTORY: The patient does not smoke any more since 1999. He does not drink. PHYSICAL EXAMINATION: GENERAL: The physical exam reveals a 62-year-old male. HEAD, EYES, EARS, NOSE, THROAT: Normocephalic. No trauma to the head. Pupils equal and reactive. Extraocular muscles intact. NECK: The neck is supple. Bilateral carotid pulses and bilateral faint bruits. No masses in the neck. CHEST: Bilateral breath sounds decreased over both lung arias consistent with some degree of mild to moderate COPD. HEART: Regular rhythm. ABDOMEN: Soft. Active bowel sounds. No rebound. No guarding. EXTREMITIES: The patient has weak palpable femoral pulses and weak palpable dorsalis pedis on the right. On the left, there are Dopplerable popliteal and dorsalis pedis pulses but the posterior tibial is absent. The patient clearly has a left Charcot's joint, which is causing severe deformity of the foot, and I am not sure how he can even walk on this. NEUROLOGIC: Neurologically he is grossly intact with decreased sensation in both legs and feet. There is an opening which is only about 0.5 cm in diameter but I can see it is going deep in and clearly going to the hardware. RECOMMENDATIONS: At this point, we are going to evaluate the patient's vascular supply to this area because every level of vascular improvement that he can get will be essential. Unfortunately diabetics usually get small vessel disease limited to the pattern below the knee, occlusive changes involving the anterior tibial and posterior tibial and peroneal arteries while the proximal inflow is usually spared. In addition, he is somewhat obese so it is hard to palpate the pulses although I do not believe based on clinical exam that patient has any degree of inflow disease that would require surgical intervention. As far as the Charcot's joint is concerned, this is clearly going into the hardware so the patient has osteomyelitis by definition. At some point, he will need to have hardware removed but I agree that his A1c is high, so right now this may not be the best time to do it. I have explained to the patient there is a high risk of him losing the leg below the knee and needing a below-knee amputation in the near future is very high. I will continue to follow the patient with you. Thank you very much for the referral. Flaco AGUILAR/CLARICE /1:16 PM /2:39 PM ERASMO
[2017-10-15] MEDS: SODIUM CHLOR 0.9% 1000 ML INJ 1,000 ML IV SCH ×2 (14:57→22:21)
[2017-10-15 16:41] VITALS: BP 169/82; PULSE 87; RESP 20; TEMP 99.1; O2SAT 96
--- NOTE | 2017-10-15 16:50 | RADRPT ---
EXAM DATE/TIME: 10/15/2017 15:45 [facility] COMPARISON: No previous studies available for comparison. INDICATIONS : Bruit. MEDICAL HISTORY : Hypercholesterolemia. Hypertension. Glasses. Diabetes. Infection in perineum. SURGICAL HISTORY : Tonsillectomy. Bilateral feet surgery. ENCOUNTER: Initial ACUITY: 1 day PAIN SCORE: 2/10 LOCATION: Bilateral neck PEAK SYSTOLIC VELOCITIES (cm/sec): ICA/CCA RATIO: Right: 0.9 Left: 1.5 ICA: Right: 69.9 Left: 99.2 CCA: Right: 79.7 Left: 64.4 ECA: Right: 79.8 Left: 96.5 VERTEBRAL: Right: 55.6 antegrade Left: 49.0 antegrade Elevated flow velocities and ICA/CCA ratios have been found to correlate with increased degrees of vessel stenosis, calculated as percentage of diameter relative to a normal segment of distal ICA/CCA FINDINGS: RIGHT CAROTID: Mild non-shadowing plaque formation in the proximal internal carotid artery. No significant stenosis is visualized. The waveforms are within normal limits. LEFT CAROTID: Mild plaque formation in the carotid bulb and proximal internal carotid artery. No significant steno sis is visualized. The waveforms are within normal limits. VERTEBRAL ARTERIES: Antegrade flow is seen in both vertebral arteries. MISCELLANEOUS: None. CONCLUSION: Mild bilateral noncalcified plaque formation hemodynamic profile characteristic of less than 50% sten osis. Kapil Lorenzana MD on October 15, 2017 at 16:45 Board Certified Radiologist. This report was verified electronically.
--- NOTE | 2017-10-15 18:54 | PD.ID.CON ---
History of Present Illness Service Infectious disease Consult Requested By Dr. Hays Reason for Consult Evaluation and management of left foot osteomyelitis possible Primary Care Physician Percy Perera M.D. Diagnoses: History of Present Illness Mr. Daniels is a pleasant 62 y/o WM with diabetes mellitus, diabetic neuropathy, charcot foot, HTN and CKD stage 3. Pt reported to the ED at [facility] on 10/13/17 for left foot infection. Pt reported that he developed a sore on the medial aspect of his left foot around 3 weeks ago that he thought was related to irritation from his shoe. He states that he thought that this had mostly healed up until a few days ago when the wound opened up and pus started coming out. He was seen as an outpt by his PCP and by his Hand Leather Trimmer, Dr. Banks who cultured the pus from the wound and recommended that he come to the hospital for evaluation for osteomyelitis and possible surgical intervention. He had a previous charcot foot surgery in 2012 in [place] and reports that he had some hardware placed at that time. Denies any fevers or chills, nausea/vomiting, chest pain or SOB. In the ED the foot wound was cultured again and he had blood cultures drawn. Pt was given a dose of Vancomycin and Cipro in the ED. Pertinent positives and negatives: Prior history of right foot infection treated with IV antibiotics using a PICC line in [place] Denies any fever or chills or night sweats. Hardware in the left foot where there is concern for osteomyelitis. Review of Systems Constitutional: DENIES: Diaphoretic episodes, Fatigue, Fever, Weight gain, Weight loss, Chills, Dizziness, Change in appetite, Night Sweats Endocrine: DENIES: Heat/cold intolerance, Polydipsia, Polyuria, Polyphagia Eyes: DENIES: Blurred vision, Diplopia, Eye inflammation, Eye pain, Vision loss , Photosensitivity, Double Vision Ears, nose, mouth, throat: DENIES: Tinnitus, Hearing loss, Vertigo, Nasal discharge, Oral lesions, Throat pain, Hoarseness, Ear Pain, Running Nose, Epistaxis, Sinus Pain, Toothache, Odynophagia Respiratory: DENIES: Apneas, Cough, Snoring, Wheezing, Hemoptysis, Sputum production, Shortness of breath Cardiovascular: DENIES: Chest pain, Palpitations, Syncope, Dyspnea on Exertion , PND, Lower Extremity Edema, Orthopnea, Claudication Gastrointestinal: DENIES: Abdominal pain, Black stools, Bloody stools, Constipation, Diarrhea, Nausea, Vomiting, Difficulty Swallowing, Anorexia Genitourinary: DENIES: Sexual dysfunction, Urinary frequency, Urinary incontinence, Urgency, Hematuria, Dysuria, Nocturia, Penile Discharge, Testicular Pain, Testicular Swelling Musculoskeletal: DENIES: Joint pain, Muscle aches, Stiffness, Joint Swelling, Back pain, Neck pain Integumentary: DENIES: Abnormal pigmentation, Nail changes, Pruritus, Rash Hematologic/lymphatic: DENIES: Bruising, Lymphadenopathy Immunologic/allergic: DENIES: Eczema, Urticaria Neurologic: DENIES: Abnormal gait, Headache, Localized weakness, Paresthesias, Seizures, Speech Problems, Tremor, Poor Balance Psychiatric: DENIES: Anxiety, Confusion, Mood changes, Depression, Hallucinations, Agitation, Suicidal Ideation, Homicidal Ideation, Delusions Except as stated in HPI: all other systems reviewed are Neg Past Family Social History Allergies: Coded Allergies: Penicillins (Verified Allergy, Unknown, 10/13/17) azithromycin (Verified Allergy, Unknown, Rash, 10/13/17) clindamycin (Verified Allergy, Unknown, Rash, 10/13/17) doxycycline (Verified Adverse Reaction, Intermediate, N/V, 10/13/17) Past Medical History Diabetes mellitus, type 2 Diabetic neuropathy Charcot foot, left foot CKD, stage III HTN Glaucoma Prior history of right foot infection treated with IV antibiotics using a PICC line. Past Surgical History Charcot foot surgery in 2013 in [place], left foot Right foot surgery with bone removal Reported Medications No antibiotics given to patient prior to admission. Reported Meds & Active Scripts Active Reported Pravastatin 10 Mg Tab 10 Mg PO HS Amlodipine (Amlodipine Besylate) 5 Mg Tab 7.5 Mg PO DAILY Fenofibrate 145 Mg Tab 145 Mg PO HS Dorzolamide-Timolol Opth Drops 22.3-6.8 Mg/Ml Soln 1 Drop EACH EYE BID Aspirin 81 Mg Chew 81 Mg CHEW HS Metoprolol Tartrate 25 Mg Tab 12.5 Mg PO BID Lisinopril 30 Mg Tab 30 Mg PO DAILY Furosemide 40 Mg Tab 40 Mg PO DAILY Glimepiride 1 Mg Tab 0.5 Mg PO DAILY Take with breakfast or first main meal Active Ordered Medications Current Medications Medications (Trade) Dose Ordered Sig/Enrique Route Start Time Stop Time Status Last Admin (Norvasc) 7.5 mg DAILY PO 10/14/17 09:00 10/15/17 08:48 (Cosopt 2-0.5% Opth Soln) 1 drop BID EACH EYE 10/13/17 21:00 10/15/17 08:48 (Tricor) 145 mg HS PO 10/13/17 21:00 10/14/17 21:48 (Lopressor) 12.5 mg BID PO 10/13/17 21:00 10/15/17 08:48 (Pravachol) 10 mg HS PO 10/13/17 21:00 10/14/17 21:48 (Prinivil) 30 mg DAILY PO 10/14/17 09:00 10/15/17 08:48 (Tylenol) 650 mg Q4H PRN PO 10/13/17 11:00 (Zofran Inj) 4 mg Q6H PRN IV 10/13/17 11:00 (NovoLOG SUPPLEMENTAL SCALE) 1 ACHS SLIDING SCALE SQ 10/13/17 12:00 10/15/17 17:51 (Pill Splitter) 1 ea UNSCH PRN OTHER 10/13/17 11:15 (Levemir Inj) 15 units Q12HR SQ 10/15/17 09:00 10/15/17 10:28 Sodium Chloride 1,000 ml @ 100 mls/hr Q10H IV 10/15/17 13:30 10/15/17 14:57 Family History Noncontributory to current infectious disease problems Social History Does consume alcohol Alcohol use, 3-4 rum and diet cokes per night Denies any tobacco use Pt lives locally with his , they are from [place] and moved to [place] a few years ago Physical Exam Vital Signs Vital Signs Date Time Temp Pulse Resp B/P (MAP) Pulse Ox O2 Delivery O2 Flow Rate FiO2 10/15/17 16:41 99.1 87 20 169/82 (111) 96 10/15/17 12:24 98.4 71 20 141/85 (103) 97 10/15/17 08:45 98.7 71 20 153/80 (104) 96 10/15/17 04:00 98.2 75 20 139/62 (87) 95 10/15/17 00:00 98.0 74 20 139/62 (87) 95 10/14/17 20:00 98.4 84 20 139/66 (90) 96 Physical Exam GENERAL: This is a well-nourished, well-developed patient, in no apparent distress. SKIN: No rashes, ecchymoses or lesions. Cool and dry. HEAD: Atraumatic. Normocephalic. No temporal or scalp tenderness. EYES: Pupils equal round and reactive. Extraocular motions intact. No scleral icterus. No injection or drainage. ENT: Nose without bleeding, purulent drainage or septal hematoma. Throat without erythema, tonsillar hypertrophy or exudate. Uvula midline. Airway patent. NECK: Trachea midline. Supple, nontender, no meningeal signs. CARDIOVASCULAR: Heart sounds audible. RESPIRATORY: Clear to auscultation. Breath sounds equal bilaterally. No wheezes , rales, or rhonchi. GASTROINTESTINAL: Abdomen soft, non-tender, nondistended. Obese MUSCULOSKELETAL: Left lower extremity with Charcot deformity chronic changes. Decreased fine touch sensation. On the medial aspect of the foot on the dorsum there was a very small opening with minimal if any discharge noted. There was minimal erythema around it but no tenderness and no induration noted. NEUROLOGICAL: Awake and alert. Decreased fine touch sensation in his bilateral lower extremity Psych cooperative IV line sites with no evidence of infection. Laboratory Date/Time Source Procedure Growth Status 10/13/17 09:15 Blood Peripheral Aerobic Blood Culture - Preliminary NO GROWTH IN 2 DAYS Resulted 10/13/17 09:15 Blood Peripheral Anaerobic Blood Culture - Preliminary NO GROWTH IN 2 DAYS Resulted 10/13/17 09:15 Wound Foot Gram Stain - Final Complete 10/13/17 09:15 Wound Foot Wound Culture - Final HEAVY GROWTH NORMAL SKIN JANET... Complete Result Diagram: 10/13/1715 10/13/1715 Imaging Last Impressions Carotid Artery Ultrasound 10/15/17 0000 Signed Impressions: Service Date/Time: Sunday, October 15, 2017 15:45 - CONCLUSION: Mild bilateral noncalcified plaque formation hemodynamic profile characteristic of less than 50%% stenosis. Kapil Lorenzana MD Bone Scan Nuclear Medicine 10/14/17 1410 Signed Impressions: Service Date/Time: Saturday, October 14, 2017 14:10 - CONCLUSION: 1. The three-phase bone scan demonstrates increased blood flow, increased blood pool and increased tracer activity in the late images specifically involving the first left metatarsal. Osteomyelitis would be the primary consideration. However, recommend a gallium scan to evaluate the bone gallium ratio. 2. There is some increased delayed uptake at both mortise joints suggestive of primary bony degenerative changes. Tristan Davis MD Foot MRI 10/13/17 0000 Signed Impressions: Service Date/Time: October 10:35 - CONCLUSION: 1. Artifact from metallic hardware obscuring portions of the great toe metatarsal and adjacent soft tissue. Focal cutaneous ulceration/soft tissue defect is immediately medial to the great toe metatarsal shaft. Soft tissue enhancement in this region suggests cellulitis. The metatarsal and this area cannot be effectively evaluated for osteomyelitis due to artifact. Three-phase radionuclide bone scan may be beneficial for further evaluation. 2. Bony fusion across the talonavicular, calcaneocuboid, and subtalar joints as well as the fourth tarsometatarsal joint. Osteoarthritic findings the second, third, and fifth tarsometatarsal joints. Fer Mas MD Assessment and Plan Assessment and Plan Left foot possible osteomyelitis versus chronic deformity from Charcot. CRP very minimally elevated. Likely chronic osteomyelitis at this point. diabetes mellitus, diabetic neuropathy, charcot foot, HTN CKD stage 3. Recs: DC Vanco IV Cultures obtained are from superficial wound and not indicative of deeper infection. D/w she does not plan on hardware removal at this point as A1C elevated. She would like to treat this osteomyelitis. I recommended at least a bone biopsy (without any antibiotics) to help guide therapy as superficial cultures are likely colonization. Follow CTA results to see if vascular disease. Reviewed note as well as notes. No PICC till cleared by ID. This appears to be chronic osteomyelitis and decision of po vs IV antibiotics based on path and micro from Bone biopsy. Follow cultures Follow clinically. Libby Rivera MD Oct 15, 2017 18:54
[2017-10-15] MEDS ORDERED: IOHEXOL 350 MG/ML 10 ML VIAL (for RAD DIAG) IVCONTRAST ONE (18:57)
[2017-10-15 20:00] VITALS: BP 148/73; PULSE 78; RESP 16; TEMP 98.1; O2SAT 95
--- NOTE | 2017-10-15 21:11 | RADRPT ---
EXAM DATE/TIME: 10/15/2017 18:53 [facility] COMPARISON: ARTERIAL SEGMENTAL DOPPLER COMP W/TBI, October 13, 2017, 0:00. INDICATIONS : Peripheral vascular disease. IV CONTRAST: 100 cc Omnipaque 350 (iohexol) IV RADIATION DOSE: 6.53 CTDIvol (mGy) MEDICAL HISTORY : Hypertension. Cardiovascular disease diabetes SURGICAL HISTORY : None. ENCOUNTER: Initial ACUITY: 1 day PAIN SCALE: 0/10 LOCATION: Bilateral abdomen TECHNIQUE: Volumetric scanning was performed using a multi-row detector CT scanner. The data was post processed with a variety of visualization algorithms including full volume maximum intensity projection, multi -planar sliding thin slab reformation, curved planar reformation, and surface rendering techniques. Using automated exposure control and adjustment of the mA and/or kV according to patient size, radiat ion dose was kept as low as reasonably achievable to obtain optimal diagnostic quality images. DICO M format image data is available electronically for review and comparison. FINDINGS: There is diffuse wall calcification throughout the arterial structures. ABDOMINAL AORTA: The lumen is smooth without significant narrowing or aneurysmal dilation. The proximal celiac and reyes perior mesenteric arteries are patent and normal in diameter. There are solitary renal arteries bila terally without gross abnormality. . BIFURCATION: Normal. RIGHT PELVIS: The right common iliac, internal iliac, and external iliac vessels are patent without luminal irregul arity. LEFT PELVIS: The left common iliac, internal iliac, and external iliac vessels are patent and without significant stenosis. RIGHT THIGH: The superficial femoral and profunda vessels are patent without luminal irregularity. In the distal one third of the thigh, there are multiple calcified plaque causing 50-70% luminal narrowing. LEFT THIGH: The superficial femoral and profunda vessels are patent without luminal irregularity. RIGHT KNEE: The distal femoral and popliteal arteries are patent without luminal irregularity. LEFT KNEE: The distal femoral and popliteal arteries are patent without luminal irregularity. RIGHT LEG: The trifurcation is intact. There is three-vessel runoff to the distal one third of the calf. LEFT LEG: The trifurcation is intact. There is two-vessel runoff to the distal one third of the calf. CONCLUSION: 1. Diffuse arteriosclerotic calcification throughout the vascular structures. 2. Multifocal stenotic lesions in the distal one third of the right thigh 50-70% narrowing. 3. Trifurcation vessels are intact bilaterally and there is three-vessel runoff on the right and 2 ve ssel runoff on the left. Kapil Lorenzana MD on October 15, 2017 at 21:02 Board Certified Radiologist. This report was verified electronically.
[2017-10-15] MEDS: FENOFIBRATE 145 MG TAB PO SCH (22:18)
[2017-10-15] MEDS: PRAVASTATIN SOD 10 MG TAB PO SCH (22:18)
[2017-10-15] MEDS ORDERED: PHARMACY ORDERED LAB ONE (23:45)
[2017-10-16] VITALS: BP 138/66; PULSE 74; RESP 16; TEMP 98.2; O2SAT 95
[2017-10-16 04:00] VITALS: BP 130/82; PULSE 72; RESP 18; TEMP 98.1; O2SAT 95
[2017-10-16] MEDS: INSULIN ASPART SUPPLEMENTAL SCALE SQ SCH ×4 (08:00→21:00)
[2017-10-16] MEDS: METOPROLOL TARTRATE 25 MG TAB PO SCH ×2 (08:04→21:29)
[2017-10-16] MEDS: LISINOPRIL 10 MG TAB PO SCH (08:04)
[2017-10-16] MEDS: amLODIPine BESYLATE 5 MG TAB PO SCH (08:04)
[2017-10-16] MEDS: DORZOLAMIDE/TIMOLOL OPTH SOLN 10 ML BTL EACH EYE SCH ×2 (08:04→21:00)
[2017-10-16] MEDS: SODIUM CHLOR 0.9% 1000 ML INJ 1,000 ML IV SCH ×2 (08:07→19:30)
[2017-10-16] MEDS: INSULIN DETEMIR 100 UNITS/ML VIAL SQ SCH ×2 (08:44→23:48)
[2017-10-16 08:48] VITALS: BP 148/87; PULSE 77; RESP 20; TEMP 98.5; O2SAT 94
--- NOTE | 2017-10-16 11:28 | PD.CAR.PN ---
CVT Progress Note Subjective/Hospital Course: 10/16/2017 Patient with draining sinus from the left Charcot's joint Due to patient's habitus physical vascular exam is somewhat difficult. CTA with runoff reveals fairly reasonable vessels as far as structure and no hemodynamically significant inflow disease stenoses. Patient has severe calcifications throughout his vascular system as would be expected from the entire clinical picture and history. On the right side patient has about 50% stenosis of the distal SFA which is not flow-limiting at this time while the left side does not reveal any hemodynamically significant stenoses He has scattered small vessel disease however blood flow is maintained via at least 2 vessels beyond trifurcation on each side In face of the above patient has no significant vascular disease that would require surgical correction On the other hand, Charcot's joint is a challenge in its own especially with a hardware in it and in the future patient may end up with below-knee amputation As far as carotid ultrasound is concerned patient has mild atherosclerotic disease but no hemodynamically significant narrowing on either side Objective: Vital Signs Date Time Temp Pulse Resp B/P (MAP) Pulse Ox O2 Delivery O2 Flow Rate FiO2 10/16/17 08:48 98.5 77 20 148/87 (107) 94 10/16/17 04:00 98.1 72 18 130/82 (98) 95 10/16/17 04:00 Room Air 10/16/17 00:00 98.2 74 16 138/66 (90) 95 10/16/17 00:00 Room Air 10/15/17 20:00 98.1 78 16 148/73 (98) 95 10/15/17 20:00 Room Air 10/15/17 16:41 99.1 87 20 169/82 (111) 96 10/15/17 12:24 98.4 71 20 141/85 (103) 97 Result Diagram: 10/13/1715 10/13/1715 Flaco Stevens MD Oct 16, 2017 11:28
[2017-10-16] MEDS ORDERED: PROPOFOL 200 MG/20 ML AMP IV ONE (12:00)
[2017-10-16 12:21] VITALS: BP 150/72; PULSE 76; RESP 20; TEMP 98.4; O2SAT 95
--- NOTE | 2017-10-16 13:34 | HHI.PR ---
Subjective Remarks no new complaints Objective Vitals heart reg lung cta abd s/nt ext right foot bandaged. Vital Signs Date Time Temp Pulse Resp B/P (MAP) Pulse Ox O2 Delivery O2 Flow Rate FiO2 10/16/17 12:21 98.4 76 20 150/72 (98) 95 10/16/17 08:48 98.5 77 20 148/87 (107) 94 10/16/17 04:00 98.1 72 18 130/82 (98) 95 10/16/17 04:00 Room Air 10/16/17 00:00 98.2 74 16 138/66 (90) 95 10/16/17 00:00 Room Air 10/15/17 20:00 98.1 78 16 148/73 (98) 95 10/15/17 20:00 Room Air 10/15/17 16:41 99.1 87 20 169/82 (111) 96 Result Diagram: 10/13/1715 10/13/17 0915 A/P Problem List: (1) Diabetic foot ulcer ICD Codes: E11.621 - Type 2 diabetes mellitus with foot ulcer; L97.509 - Non- pressure chronic ulcer of other part of unspecified foot with unspecified severity Status: Acute Plan: - Pt is a 62 y/o WM with diabetes mellitus, diabetic neuropathy, Charcot foot with hardware since 2012, HTN and CKD stage 3. - Pt reported to the ED at [facility] on 10/13/17 for left foot infection. Pt reported that he developed a sore on the medial aspect of his left foot around 3 weeks ago that he thought was related to irritation from his shoe. A few days ago when the wound opened up and pus started coming out. He was seen as an outpt by his PCP and by his Coil Connector, Dr. Banks who cultured the pus from the wound and recommended that he come to the hospital for evaluation for possible osteomyelitis and surgical intervention. - In the ED the foot wound was cultured again and he had blood cultures drawn. - Pt was given a dose of Vancomycin and Cipro in the ED. - MRI foot unable to determine osteo due to artifact from hardware - bone scan 3 phase ordered and concern for 1st metatarsal osteo - discussed with podiatry. consulted vascular for abnormal doppler and cta done. f/u reccs. - ID consulted for assistance given complexity of osteo, hardware, so far ngtd. abx on hold - Have looked for cx's taken last week by podiatry office and pcp office...no results yet - await podiatry bone bx today. - more aggressive bg control. podiatry concerned about opening up foot to remove hardware with hgba1c of 10.5. increased basal insulin (2) Diabetes mellitus type 2, noninsulin dependent ICD Codes: E11.9 - Type 2 diabetes mellitus without complications Status: Chronic Plan: poor control. hgba1c 10.5 will start basal/bolus insulin and titrate as needed. (3) Hypertension, benign ICD Codes: I10 - Essential (primary) hypertension Status: Chronic Plan: - Cont. home meds Problem Qualifiers (1) Diabetic foot ulcer: Qualified Codes: E11.621 - Type 2 diabetes mellitus with foot ulcer; L97.529 - Non-pressure chronic ulcer of other part of left foot with unspecified severity Naif Bridges MD Oct 16, 2017 13:34
[2017-10-16] MEDS ORDERED: BUPIVACAINE HCL PF 0.5% 30 ML VIAL ONE (13:44)
[2017-10-16 20:00] VITALS: BP 149/84; PULSE 81; RESP 18; TEMP 98.6; O2SAT 94
[2017-10-16] MEDS: PRAVASTATIN SOD 10 MG TAB PO SCH (21:29)
[2017-10-16] MEDS: FENOFIBRATE 145 MG TAB PO SCH (21:29)
--- NOTE | 2017-10-16 22:29 | HHI.PR ---
Subjective Remarks Patient seen in preop. Agrees with plan surgical intervention. Denies nausea vomiting fevers or Objective Vital Signs Date Time Temp Pulse Resp B/P (MAP) Pulse Ox O2 Delivery O2 Flow Rate FiO2 10/16/17 12:21 98.4 76 20 150/72 (98) 95 10/16/17 08:48 98.5 77 20 148/87 (107) 94 10/16/17 04:00 98.1 72 18 130/82 (98) 95 10/16/17 04:00 Room Air 10/16/17 00:00 98.2 74 16 138/66 (90) 95 10/16/17 00:00 Room Air I/O 10/15/17 10/15/17 10/15/17 10/16/17 10/16/17 10/16/17 07:00 15:00 23:00 07:00 15:00 23:00 Intake Total 222 ml 94 ml 720 ml Output Total 400 ml Balance 222 ml 94 ml 320 ml Intake Oral 222 ml 94 ml 720 ml Output Urine Total 400 ml # Voids 1 4 2 # Bowel Movements 1 1 Result Diagram: 10/13/17 0915 10/13/17 0915 Imaging Last Impressions Carotid Artery Ultrasound 10/15/17 0000 Signed Impressions: Service Date/Time: Sunday, October 15, 2017 15:45 - CONCLUSION: Mild bilateral noncalcified plaque formation hemodynamic profile characteristic of less than 50%% stenosis. Kapil Lorenzana MD Aorta w/Runoff CTA 10/15/17 0000 Signed Impressions: Service Date/Time: Sunday, October 15, 2017 18:53 - CONCLUSION: 1. Diffuse arteriosclerotic calcification throughout the vascular structures. 2. Multifocal stenotic lesions in the distal one third of the right thigh 50-70%% narrowing. 3. Trifurcation vessels are intact bilaterally and there is three-vessel runoff on the right and 2 vessel runoff on the left. Kapil Lorenzana MD Bone Scan Nuclear Medicine 10/14/17 1410 Signed Impressions: Service Date/Time: Saturday, October 14, 2017 14:10 - CONCLUSION: 1. The three-phase bone scan demonstrates increased blood flow, increased blood pool and increased tracer activity in the late images specifically involving the first left metatarsal. Osteomyelitis would be the primary consideration. However, recommend a gallium scan to evaluate the bone gallium ratio. 2. There is some increased delayed uptake at both mortise joints suggestive of primary bony degenerative changes. Tristan Davis MD Foot MRI 10/13/17 0000 Signed Impressions: Service Date/Time: October 10:35 - CONCLUSION: 1. Artifact from metallic hardware obscuring portions of the great toe metatarsal and adjacent soft tissue. Focal cutaneous ulceration/soft tissue defect is immediately medial to the great toe metatarsal shaft. Soft tissue enhancement in this region suggests cellulitis. The metatarsal and this area cannot be effectively evaluated for osteomyelitis due to artifact. Three-phase radionuclide bone scan may be beneficial for further evaluation. 2. Bony fusion across the talonavicular, calcaneocuboid, and subtalar joints as well as the fourth tarsometatarsal joint. Osteoarthritic findings the second, third, and fifth tarsometatarsal joints. Fer Mas MD Objective Remarks No changes to physical exam. Dressing intact to left lower extremity Medications and IVs Current Medications Medications (Trade) Dose Ordered Sig/Enrique Route Start Time Stop Time Status Last Admin (Norvasc) 7.5 mg DAILY PO 10/14/17 09:00 10/16/17 08:04 (Cosopt 2-0.5% Opth Soln) 1 drop BID EACH EYE 10/13/17 21:00 10/16/17 21:00 (Tricor) 145 mg HS PO 10/13/17 21:00 10/16/17 21:29 (Lopressor) 12.5 mg BID PO 10/13/17 21:00 10/16/17 21:29 (Pravachol) 10 mg HS PO 10/13/17 21:00 10/16/17 21:29 (Prinivil) 30 mg DAILY PO 10/14/17 09:00 10/16/17 08:04 (Tylenol) 650 mg Q4H PRN PO 10/13/17 11:00 (Zofran Inj) 4 mg Q6H PRN IV 10/13/17 11:00 (NovoLOG SUPPLEMENTAL SCALE) 1 ACHS SLIDING SCALE SQ 10/13/17 12:00 10/15/17 22:19 (Pill Splitter) 1 ea UNSCH PRN OTHER 10/13/17 11:15 Sodium Chloride 1,000 ml @ 100 mls/hr Q10H IV 10/15/17 13:30 10/16/17 19:30 (Levemir Inj) 20 units Q12HR SQ 10/16/17 09:00 Assessment and Plan Assessment and Plan 62 year old male with left foot draining sinus possible OM Patient examined and evaluated with bedside 2 OR for bone biopsy of the first metatarsal Patient understands all complication risks benefits associated with procedure Discussed with ID bone biopsy to guide IV antibiotic Celestina Pace DPM Oct 16, 2017 22:28
--- NOTE | 2017-10-16 22:58 | HHI.PR ---
Immediate Post Op Note Procedure Date: Oct 16, 2017 Pre Op Diagnosis: Left foot first metatarsal osteomyelitic Post Op Diagnosis: Left foot first metatarsal osteomyelitis Surgeon: Celestina Pace Sales Representative Supervisor(s): None Procedure: Left first metatarsal distal and proximal bone biopsies sent for micro and pathology Findings: None Complications: None Specimen(s) removed: Proximal first metatarsal for path Proximal first metatarsal for micro Distal first metatarsal for path Distal first metatarsal for micro Estimated blood loss: Less than 5 cc Anesthesia: MAC Drains: None Patient to: PACU Patient Condition: Good Celestina Pace DPM Oct 16, 2017 22:58
[2017-10-16] MEDS ORDERED: MIDAZOLAM HCL 2 MG/2 ML VIAL ONE (22:59)
[2017-10-16] MEDS ORDERED: Post-op Orders (for Pharmacy) XX ONE (23:00)
[2017-10-16] MEDS ORDERED: NALOXONE HCL 0.4 MG/ML AMP IV PUSH PRN (23:00)
[2017-10-17] VITALS: BP 145/71; PULSE 76; RESP 18; TEMP 98.1; O2SAT 96
[2017-10-17 04:00] VITALS: BP 155/77; PULSE 72; RESP 18; TEMP 97.9; O2SAT 95
[2017-10-17] MEDS: SODIUM CHLOR 0.9% 1000 ML INJ 1,000 ML IV SCH ×3 (05:05→21:34)
[2017-10-17] MEDS: INSULIN ASPART SUPPLEMENTAL SCALE SQ SCH ×4 (08:00→21:34)
[2017-10-17 08:05] VITALS: BP 156/74; PULSE 73; RESP 18; TEMP 97.8; O2SAT 96
[2017-10-17] MEDS: METOPROLOL TARTRATE 25 MG TAB PO SCH ×2 (08:19→21:22)
[2017-10-17] MEDS: amLODIPine BESYLATE 5 MG TAB PO SCH (08:19)
[2017-10-17] MEDS: LISINOPRIL 10 MG TAB PO SCH (08:19)
[2017-10-17] MEDS: DORZOLAMIDE/TIMOLOL OPTH SOLN 10 ML BTL EACH EYE SCH ×2 (08:21→21:00)
[2017-10-17] MEDS: INSULIN DETEMIR 100 UNITS/ML VIAL SQ SCH ×2 (08:22→21:34)
--- NOTE | 2017-10-17 10:34 | PD.CAR.PN ---
CVT Progress Note Subjective/Hospital Course: 10/16/2017 Patient with draining sinus from the left Charcot's joint Due to patient's habitus physical vascular exam is somewhat difficult. CTA with runoff reveals fairly reasonable vessels as far as structure and no hemodynamically significant inflow disease stenoses. Patient has severe calcifications throughout his vascular system as would be expected from the entire clinical picture and history. On the right side patient has about 50% stenosis of the distal SFA which is not flow-limiting at this time while the left side does not reveal any hemodynamically significant stenoses He has scattered small vessel disease however blood flow is maintained via at least 2 vessels beyond trifurcation on each side In face of the above patient has no significant vascular disease that would require surgical correction On the other hand, Charcot's joint is a challenge in its own especially with a hardware in it and in the future patient may end up with below-knee amputation As far as carotid ultrasound is concerned patient has mild atherosclerotic disease but no hemodynamically significant narrowing on either side 10/17/2017 As noted above, patient does not have significant hemodynamically obstructing vascular changes in either leg and below the level of the knee has diffuse calcific changes but no areas that can or should be be remedied by endovascular or open approach. Charcot joint with draining sinus in itself is a problem and I will be available if patient needs higher level amputation Objective: Vital Signs Date Time Temp Pulse Resp B/P (MAP) Pulse Ox O2 Delivery O2 Flow Rate FiO2 10/17/17 09:28 Room Air 10/17/17 08:05 97.8 73 18 156/74 (101) 96 10/17/17 04:00 Room Air 10/17/17 04:00 97.9 72 18 155/77 (103) 95 10/17/17 00:00 Room Air 10/17/17 00:00 98.1 76 18 145/71 (95) 96 10/16/17 23:00 98.3 75 16 136/64 (88) 94 Room Air 10/16/17 22:56 98.4 79 16 138/69 (92) 93 Room Air 10/16/17 20:00 Room Air 10/16/17 20:00 98.6 81 18 149/84 (105) 94 10/16/17 12:21 98.4 76 20 150/72 (98) 95 Result Diagram: 10/13/17 0915 10/13/17 0915 Flaco Stevens MD Oct 17, 2017 10:33
[2017-10-17 12:12] VITALS: BP 131/74; PULSE 73; RESP 18; TEMP 97.8; O2SAT 96
--- NOTE | 2017-10-17 15:11 | HHI.PR ---
Subjective Remarks No new complaints. Objective Vitals Vital Signs Date Time Temp Pulse Resp B/P (MAP) Pulse Ox O2 Delivery O2 Flow Rate FiO2 10/17/17 12:12 97.8 73 18 131/74 (93) 96 10/17/17 09:28 Room Air 10/17/17 08:05 97.8 73 18 156/74 (101) 96 10/17/17 04:00 Room Air 10/17/17 04:00 97.9 72 18 155/77 (103) 95 10/17/17 00:00 Room Air 10/17/17 00:00 98.1 76 18 145/71 (95) 96 10/16/17 23:00 98.3 75 16 136/64 (88) 94 Room Air 10/16/17 22:56 98.4 79 16 138/69 (92) 93 Room Air 10/16/17 20:00 Room Air 10/16/17 20:00 98.6 81 18 149/84 (105) 94 Result Diagram: 10/13/1715 10/13/17 0915 Imaging Last Impressions Carotid Artery Ultrasound 10/15/17 0000 Signed Impressions: Service Date/Time: Sunday, October 15, 2017 15:45 - CONCLUSION: Mild bilateral noncalcified plaque formation hemodynamic profile characteristic of less than 50%% stenosis. Kapil Lorenzana MD Aorta w/Runoff CTA 10/15/17 0000 Signed Impressions: Service Date/Time: Sunday, October 15, 2017 18:53 - CONCLUSION: 1. Diffuse arteriosclerotic calcification throughout the vascular structures. 2. Multifocal stenotic lesions in the distal one third of the right thigh 50-70%% narrowing. 3. Trifurcation vessels are intact bilaterally and there is three-vessel runoff on the right and 2 vessel runoff on the left. Kapil Lorenzana MD Bone Scan Nuclear Medicine 10/14/17 1410 Signed Impressions: Service Date/Time: Saturday, October 14, 2017 14:10 - CONCLUSION: 1. The three-phase bone scan demonstrates increased blood flow, increased blood pool and increased tracer activity in the late images specifically involving the first left metatarsal. Osteomyelitis would be the primary consideration. However, recommend a gallium scan to evaluate the bone gallium ratio. 2. There is some increased delayed uptake at both mortise joints suggestive of primary bony degenerative changes. Tristan Davis MD Foot MRI 10/13/17 0000 Signed Impressions: Service Date/Time: October 10:35 - CONCLUSION: 1. Artifact from metallic hardware obscuring portions of the great toe metatarsal and adjacent soft tissue. Focal cutaneous ulceration/soft tissue defect is immediately medial to the great toe metatarsal shaft. Soft tissue enhancement in this region suggests cellulitis. The metatarsal and this area cannot be effectively evaluated for osteomyelitis due to artifact. Three-phase radionuclide bone scan may be beneficial for further evaluation. 2. Bony fusion across the talonavicular, calcaneocuboid, and subtalar joints as well as the fourth tarsometatarsal joint. Osteoarthritic findings the second, third, and fifth tarsometatarsal joints. Fer Mas MD Objective Remarks GENERAL: This is a well-nourished, well-developed patient, in no apparent distress. CARDIOVASCULAR: Regular rate and rhythm without murmurs, gallops, or rubs. RESPIRATORY: Clear to auscultation. Breath sounds equal bilaterally. No wheezes , rales, or rhonchi. GASTROINTESTINAL: Abdomen soft, non-tender, nondistended. Normal active bowel sounds MUSCULOSKELETAL: Extremities without clubbing, cyanosis, or edema. NEURO: Alert & Oriented x4 to person, place, time, situation. Moves all ext x4 A/P Problem List: (1) Diabetic foot ulcer ICD Codes: E11.621 - Type 2 diabetes mellitus with foot ulcer; L97.509 - Non- pressure chronic ulcer of other part of unspecified foot with unspecified severity Status: Acute Plan: - Pt is a 62 y/o WM with diabetes mellitus, diabetic neuropathy, Charcot foot with hardware since 2012, HTN and CKD stage 3. - Pt reported to the ED at [facility] [place] on 10/13/17 for left foot infection. Pt reported that he developed a sore on the medial aspect of his left foot around 3 weeks ago that he thought was related to irritation from his shoe. A few days ago when the wound opened up and pus started coming out. He was seen as an outpt by his PCP and by his Patient Registration Manager, Dr. Banks who cultured the pus from the wound and recommended that he come to the hospital for evaluation for possible osteomyelitis and surgical intervention. - In the ED the foot wound was cultured again and he had blood cultures drawn. - Pt was given a dose of Vancomycin and Cipro in the ED. - MRI foot unable to determine osteo due to artifact from hardware - bone scan 3 phase ordered and concern for 1st metatarsal osteo - discussed with podiatry. consulted vascular for abnormal doppler and cta done. f/u reccs. - ID consulted for assistance given complexity of osteo, hardware, so far ngtd. abx on hold - Have looked for cx's taken last week by podiatry office and pcp office...no results yet - await podiatry bone bx today. - more aggressive bg control. podiatry concerned about opening up foot to remove hardware with hgba1c of 10.5. increased basal insulin 10/17/17 - bone biopsies obtain (10/16), results pending - case d/w pathology, results should be available 10/18 - need results of pathology to guide treatment, once available will d/w ID & podiatry - anticipate d/c in next 1-2 days. (2) Diabetes mellitus type 2, noninsulin dependent ICD Codes: E11.9 - Type 2 diabetes mellitus without complications Status: Chronic Plan: - blood sugar improving since admission - poor control. hgba1c 10.5 - levemir - SSI (3) Hypertension, benign ICD Codes: I10 - Essential (primary) hypertension Status: Chronic Plan: - Cont. home meds Problem Qualifiers (1) Diabetic foot ulcer: Qualified Codes: E11.621 - Type 2 diabetes mellitus with foot ulcer; L97.529 - Non-pressure chronic ulcer of other part of left foot with unspecified severity Darnell Vidal DO Oct 17, 2017 15:11
[2017-10-17 16:18] VITALS: BP 156/79; PULSE 70; RESP 18; TEMP 97.8; O2SAT 94
--- NOTE | 2017-10-17 17:02 | PD.POD ---
Subjective Podiatric Problems POD # 1 left foot bone bx x 2, by Dr.J Pace. Pt denies any pain n/v/f/h/c/ sob. Pain score: 0 Past Med/Surg/Social History Social History Smoking Status: Former Smoker Objective Vital Signs Vital Signs Date Time Temp Pulse Resp B/P (MAP) Pulse Ox O2 Delivery O2 Flow Rate FiO2 10/17/17 16:18 97.8 70 18 156/79 (104) 94 10/17/17 12:12 97.8 73 18 131/74 (93) 96 10/17/17 09:28 Room Air 10/17/17 08:05 97.8 73 18 156/74 (101) 96 10/17/17 04:00 Room Air 10/17/17 04:00 97.9 72 18 155/77 (103) 95 10/17/17 00:00 Room Air 10/17/17 00:00 98.1 76 18 145/71 (95) 96 10/16/17 23:00 98.3 75 16 136/64 (88) 94 Room Air 10/16/17 22:56 98.4 79 16 138/69 (92) 93 Room Air 10/16/17 20:00 Room Air 10/16/17 20:00 98.6 81 18 149/84 (105) 94 Coded Allergies: Penicillins (Verified Allergy, Unknown, 10/13/17) azithromycin (Verified Allergy, Unknown, Rash, 10/13/17) clindamycin (Verified Allergy, Unknown, Rash, 10/13/17) doxycycline (Verified Adverse Reaction, Intermediate, N/V, 10/13/17) Exam-Podiatry Remarks Both incision sites are well coapted with all sutures intact, no drainage, no erythema. No open wounds. No other changes from initial consultation. Assessment & Plan A/P 1) POD #1 left foot bone bx -pt is ok to d/c from a podiatry stand point, pending final cultures and ID abx recs -keep bandage clean, dry, and intact -WBAT in surgical shoe -F/U with 1 week after d/c -Call with any questions or concerns Carmen Gutierrez DPM Oct 17, 2017 17:02
[2017-10-17 20:00] VITALS: BP 154/81; PULSE 74; RESP 19; TEMP 98.1; O2SAT 95
--- NOTE | 2017-10-17 20:28 | HHI.IDPN ---
Subjective Subjective Remarks Mr. Daniels is a pleasant 62 y/o WM with diabetes mellitus, diabetic neuropathy, charcot foot, HTN and CKD stage 3. Pt reported to the ED at [facility] [place] on 10/13/17 for left foot infection. Pt reported that he developed a sore on the medial aspect of his left foot around 3 weeks ago that he thought was related to irritation from his shoe. He states that he thought that this had mostly healed up until a few days ago when the wound opened up and pus started coming out. He was seen as an outpt by his PCP and by his Motorcycle Delivery Driver, Dr. Banks who cultured the pus from the wound and recommended that he come to the hospital for evaluation for osteomyelitis and possible surgical intervention. He had a previous charcot foot surgery in 2012 in [place] and reports that he had some hardware placed at that time. Denies any fevers or chills, nausea/vomiting, chest pain or SOB. In the ED the foot wound was cultured again and he had blood cultures drawn. Pt was given a dose of Vancomycin and Cipro in the ED. Pertinent positives and negatives: Prior history of right foot infection treated with IV antibiotics using a PICC line in [place] Denies any fever or chills or night sweats. Hardware in the left foot where there is concern for osteomyelitis. Overnight events reviewed. Patient underwent a bone biopsy No fever no rash No diarrhea Feels well wishes to go home Antibiotics None Lines Line sites with no evidence of infection. Past Medical History Reviewed. Allergies: Coded Allergies: Penicillins (Verified Allergy, Unknown, 10/13/17) azithromycin (Verified Allergy, Unknown, Rash, 10/13/17) clindamycin (Verified Allergy, Unknown, Rash, 10/13/17) doxycycline (Verified Adverse Reaction, Intermediate, N/V, 10/13/17) Objective . Vital Signs Date Time Temp Pulse Resp B/P (MAP) Pulse Ox O2 Delivery O2 Flow Rate FiO2 10/17/17 18:06 Room Air 10/17/17 16:18 97.8 70 18 156/79 (104) 94 10/17/17 12:12 97.8 73 18 131/74 (93) 96 10/17/17 09:28 Room Air 10/17/17 08:05 97.8 73 18 156/74 (101) 96 10/17/17 04:00 Room Air 10/17/17 04:00 97.9 72 18 155/77 (103) 95 10/17/17 00:00 Room Air 10/17/17 00:00 98.1 76 18 145/71 (95) 96 10/16/17 23:00 98.3 75 16 136/64 (88) 94 Room Air 10/16/17 22:56 98.4 79 16 138/69 (92) 93 Room Air 10/17/17 10/17/17 10/18/17 15:00 23:00 07:00 Intake Total 720 ml Balance 720 ml Intake Oral 720 ml # Voids 3 # Bowel Movements 2 . Microbiology Date/Time Source Procedure Growth Status 10/16/17 21:45 Abscess Foot Fungal Smear - Final NO FUNGAL ELEMENTS SEEN. Resulted 10/16/17 21:45 Abscess Foot Fungal Culture Pending Resulted 10/16/17 21:45 Abscess Foot Acid Fast Stain Pending Received 10/16/17 21:45 Abscess Foot Mycobacterial Culture Pending Received 10/16/17 21:45 Abscess Foot Gram Stain - Final Resulted 10/16/17 21:45 Abscess Foot Wound Culture Pending Resulted 10/16/17 21:45 Abscess Foot Fungal Smear - Final NO FUNGAL ELEMENTS SEEN. Resulted 10/16/17 21:45 Abscess Foot Fungal Culture Pending Resulted 10/16/17 21:45 Abscess Foot Acid Fast Stain Pending Received 10/16/17 21:45 Abscess Foot Mycobacterial Culture Pending Received 10/16/17 21:45 Abscess Foot Gram Stain - Final Resulted 10/16/17 21:45 Abscess Foot Wound Culture Pending Resulted Imaging Last Impressions Carotid Artery Ultrasound 10/15/17 0000 Signed Impressions: Service Date/Time: Sunday, October 15, 2017 15:45 - CONCLUSION: Mild bilateral noncalcified plaque formation hemodynamic profile characteristic of less than 50%% stenosis. Kapil Lorenzana MD Aorta w/Runoff CTA 10/15/17 0000 Signed Impressions: Service Date/Time: Sunday, October 15, 2017 18:53 - CONCLUSION: 1. Diffuse arteriosclerotic calcification throughout the vascular structures. 2. Multifocal stenotic lesions in the distal one third of the right thigh 50-70%% narrowing. 3. Trifurcation vessels are intact bilaterally and there is three-vessel runoff on the right and 2 vessel runoff on the left. Kapil Lorenzana MD Bone Scan Nuclear Medicine 10/14/17 1410 Signed Impressions: Service Date/Time: Saturday, October 14, 2017 14:10 - CONCLUSION: 1. The three-phase bone scan demonstrates increased blood flow, increased blood pool and increased tracer activity in the late images specifically involving the first left metatarsal. Osteomyelitis would be the primary consideration. However, recommend a gallium scan to evaluate the bone gallium ratio. 2. There is some increased delayed uptake at both mortise joints suggestive of primary bony degenerative changes. Tristan Davis MD Foot MRI 10/13/17 0000 Signed Impressions: Service Date/Time: October 10:35 - CONCLUSION: 1. Artifact from metallic hardware obscuring portions of the great toe metatarsal and adjacent soft tissue. Focal cutaneous ulceration/soft tissue defect is immediately medial to the great toe metatarsal shaft. Soft tissue enhancement in this region suggests cellulitis. The metatarsal and this area cannot be effectively evaluated for osteomyelitis due to artifact. Three-phase radionuclide bone scan may be beneficial for further evaluation. 2. Bony fusion across the talonavicular, calcaneocuboid, and subtalar joints as well as the fourth tarsometatarsal joint. Osteoarthritic findings the second, third, and fifth tarsometatarsal joints. Fer Mas MD Physical Exam GENERAL: This is a well-nourished, well-developed patient, in no apparent distress. SKIN: No rashes, ecchymoses or lesions. Cool and dry. HEAD: Atraumatic. Normocephalic. No temporal or scalp tenderness. EYES: Pupils equal round and reactive. Extraocular motions intact. No scleral icterus. No injection or drainage. ENT: Nose without bleeding, purulent drainage or septal hematoma. Throat without erythema, tonsillar hypertrophy or exudate. Uvula midline. Airway patent. NECK: Trachea midline. Supple, nontender, no meningeal signs. CARDIOVASCULAR: Heart sounds audible. RESPIRATORY: Clear to auscultation. Breath sounds equal bilaterally. No wheezes , rales, or rhonchi. GASTROINTESTINAL: Abdomen soft, non-tender, nondistended. Obese MUSCULOSKELETAL: Left lower extremity in dressing. Deferred exam. NEUROLOGICAL: Awake and alert. Decreased fine touch sensation in his bilateral lower extremity Psych cooperative IV line sites with no evidence of infection. Assessment & Plan Remarks Left foot possible osteomyelitis versus chronic deformity from Charcot. CRP very minimally elevated. Likely chronic osteomyelitis at this point. diabetes mellitus, diabetic neuropathy, charcot foot, HTN CKD stage 3. Recs: Observe off antibiotics. If intraop cultures no growth will d.w Rn Pediatric if IV antibiotics can be arranged post discharge should the biopsy come back positive for osteomyelitis. Clinically low suspicion of osteomyelitis more cw with Charcots however bone biopsy path will be the definitive answer. dw patient and family will have him follow up with Dr.Reba Farah in any case along with . Follow cultures Follow clinically. Libby Rivera MD Oct 17, 2017 20:28
[2017-10-17] MEDS: FENOFIBRATE 145 MG TAB PO SCH (21:22)
[2017-10-17] MEDS: PRAVASTATIN SOD 10 MG TAB PO SCH (21:22)
[2017-10-18] VITALS (7 sets, daily range): BP systolic 121–148; BP diastolic 69–90; PULSE 67–78; RESP 17–21; TEMP 97.8–98.8; O2SAT 94–100
[2017-10-18] MEDS: INSULIN ASPART SUPPLEMENTAL SCALE SQ SCH ×4 (07:28→21:19)
[2017-10-18] MEDS: DORZOLAMIDE/TIMOLOL OPTH SOLN 10 ML BTL EACH EYE SCH ×2 (07:28→21:18)
[2017-10-18] MEDS: METOPROLOL TARTRATE 25 MG TAB PO SCH ×2 (07:29→21:16)
[2017-10-18] MEDS: amLODIPine BESYLATE 5 MG TAB PO SCH (07:29)
[2017-10-18] MEDS: LISINOPRIL 10 MG TAB PO SCH (07:29)
[2017-10-18] MEDS: INSULIN DETEMIR 100 UNITS/ML VIAL SQ SCH ×2 (07:30→21:20)
[2017-10-18] MEDS: SODIUM CHLOR 0.9% 1000 ML INJ 1,000 ML IV SCH ×2 (11:11→21:21)
--- NOTE | 2017-10-18 11:21 | MP ---
cc: CELESTINA OWEN DPM DATE OF SURGERY 10/16/2017 DATE OF 1955 SURGEON Celestina Owen. KETTLE TENDER None. PREOPERATIVE DIAGNOSIS Osteomyelitis, first metatarsal left foot. POSTOPERATIVE DIAGNOSIS Osteomyelitis, first metatarsal left foot. PROCEDURE Bone biopsy to distal first metatarsal as well as proximal first metatarsal, left foot. ANESTHESIA Local sedation with 10 cc of Marcaine plain infiltrated about the left foot. HEMOSTASIS None. ESTIMATED BLOOD LOSS Less than 5 cc. MATERIALS 3-0 nylon. INJECTABLES None. COMPLICATIONS None. INDICATION FOR PROCEDURE The patient had a draining sinus on the dorsal aspect of the foot x1 week, not healing. The patient states he had pus coming out of his foot, therefore he presented to the ED. The patient was started on IV antibiotics. The draining sinus resolved. A bone scan showed osteomyelitis to the first metatarsal. Infectious Disease is requesting bone biopsy to tailor antibiotics. DESCRIPTION OF PROCEDURE The patient was brought to the operating room and left on the stretcher. His left foot was prepped and draped in the usual sterile manner. An incision was made to the dorsal and proximal first metatarsal. A Jamshidi needle was utilized to obtain bone biopsies for culture and pathology both to distal and proximal first metatarsal. Both sites were copiously irrigated. 3-0 nylon was used to close the skin. The patient tolerated the procedure and anesthesia well. He will be transferred from PACU to the floor. His vital signs were stable with neurovascular status intact to the left foot. LEVON Dickson/[place] /10:52 PM /10:57 AM
--- NOTE | 2017-10-18 14:11 | HHI.PR ---
Subjective Remarks No new complaints Objective Vitals Vital Signs Date Time Temp Pulse Resp B/P (MAP) Pulse Ox O2 Delivery O2 Flow Rate FiO2 10/18/17 12:00 98.2 73 18 129/73 (91) 97 10/18/17 08:17 Room Air 10/18/17 08:00 97.8 70 18 148/69 (95) 94 10/18/17 04:00 98.8 67 19 147/90 (109) 100 10/18/17 04:00 Room Air 10/18/17 00:00 98.1 68 18 124/77 (93) 94 10/18/17 00:00 Room Air 10/17/17 20:00 98.1 74 19 154/81 (105) 95 10/17/17 20:00 Room Air 10/17/17 18:06 Room Air 10/17/17 16:18 97.8 70 18 156/79 (104) 94 Imaging Last Impressions Carotid Artery Ultrasound 10/15/17 0000 Signed Impressions: Service Date/Time: Sunday, October 15, 2017 15:45 - CONCLUSION: Mild bilateral noncalcified plaque formation hemodynamic profile characteristic of less than 50%% stenosis. Kapil Lorenzana MD Aorta w/Runoff CTA 10/15/17 0000 Signed Impressions: Service Date/Time: Sunday, October 15, 2017 18:53 - CONCLUSION: 1. Diffuse arteriosclerotic calcification throughout the vascular structures. 2. Multifocal stenotic lesions in the distal one third of the right thigh 50-70%% narrowing. 3. Trifurcation vessels are intact bilaterally and there is three-vessel runoff on the right and 2 vessel runoff on the left. Kapil Lorenzana MD Bone Scan Nuclear Medicine 10/14/17 1410 Signed Impressions: Service Date/Time: Saturday, October 14, 2017 14:10 - CONCLUSION: 1. The three-phase bone scan demonstrates increased blood flow, increased blood pool and increased tracer activity in the late images specifically involving the first left metatarsal. Osteomyelitis would be the primary consideration. However, recommend a gallium scan to evaluate the bone gallium ratio. 2. There is some increased delayed uptake at both mortise joints suggestive of primary bony degenerative changes. Tristan Davis MD Foot MRI 10/13/17 0000 Signed Impressions: Service Date/Time: October 10:35 - CONCLUSION: 1. Artifact from metallic hardware obscuring portions of the great toe metatarsal and adjacent soft tissue. Focal cutaneous ulceration/soft tissue defect is immediately medial to the great toe metatarsal shaft. Soft tissue enhancement in this region suggests cellulitis. The metatarsal and this area cannot be effectively evaluated for osteomyelitis due to artifact. Three-phase radionuclide bone scan may be beneficial for further evaluation. 2. Bony fusion across the talonavicular, calcaneocuboid, and subtalar joints as well as the fourth tarsometatarsal joint. Osteoarthritic findings the second, third, and fifth tarsometatarsal joints. Fer Mas MD Objective Remarks GENERAL: This is a well-nourished, well-developed patient, in no apparent distress. CARDIOVASCULAR: Regular rate and rhythm without murmurs, gallops, or rubs. RESPIRATORY: Clear to auscultation. Breath sounds equal bilaterally. No wheezes , rales, or rhonchi. GASTROINTESTINAL: Abdomen soft, non-tender, nondistended. Normal active bowel sounds MUSCULOSKELETAL: Extremities without clubbing, cyanosis, or edema. NEURO: Alert & Oriented x4 to person, place, time, situation. Moves all ext x4 Procedures bone biopsies 10/16/17 A/P Problem List: (1) Diabetic foot ulcer ICD Codes: E11.621 - Type 2 diabetes mellitus with foot ulcer; L97.509 - Non- pressure chronic ulcer of other part of unspecified foot with unspecified severity Status: Acute Plan: - Pt is a 62 y/o WM with diabetes mellitus, diabetic neuropathy, Charcot foot with hardware since 2012, HTN and CKD stage 3. - Pt reported to the ED at [facility] [place] on 10/13/17 for left foot infection. Pt reported that he developed a sore on the medial aspect of his left foot around 3 weeks ago that he thought was related to irritation from his shoe. A few days ago when the wound opened up and pus started coming out. He was seen as an outpt by his PCP and by his Fourdrinier Wire Weaver, Dr. Banks who cultured the pus from the wound and recommended that he come to the hospital for evaluation for possible osteomyelitis and surgical intervention. - In the ED the foot wound was cultured again and he had blood cultures drawn. - Pt was given a dose of Vancomycin and Cipro in the ED. - MRI foot unable to determine osteo due to artifact from hardware - bone scan 3 phase ordered and concern for 1st metatarsal osteo - discussed with podiatry. consulted vascular for abnormal doppler and cta done. f/u reccs. - ID consulted for assistance given complexity of osteo, hardware, so far ngtd. abx on hold - Have looked for cx's taken last week by podiatry office and pcp office...no results yet - await podiatry bone bx today. - more aggressive bg control. podiatry concerned about opening up foot to remove hardware with hgba1c of 10.5. increased basal insulin 10/18/17 - bone biopsies obtain (10/16) - Dr. Vidal discussed case with pathology 10/18 reported no evidence of osteomyelitis although the fragments are small - need results of pathology to guide treatment, also d/w ID recommending doxycycline 100 mg PO BID for two weeks then follow up with Dr. Farah outpatient after DC - patient has had adverse reaction to doxycycline in the past (nausea and vomiting). Plan to start doxycycline tonight inpatient then DC in AM if patient able to tolerate. (2) Diabetes mellitus type 2, noninsulin dependent ICD Codes: E11.9 - Type 2 diabetes mellitus without complications Status: Chronic Plan: - blood sugar improving since admission - poor control. hgba1c 10.5 - Levemir 20 units Q12H - SSI (3) Hypertension, benign ICD Codes: I10 - Essential (primary) hypertension Status: Chronic Plan: - Cont. home meds Assessment and Plan Patient examined. Assessment and plan formulated with Carol Diehl PA-C. I agree with the above. Problem Qualifiers (1) Diabetic foot ulcer: Qualified Codes: E11.621 - Type 2 diabetes mellitus with foot ulcer; L97.529 - Non-pressure chronic ulcer of other part of left foot with unspecified severity Carol Diehl Oct 18, 2017 14:11 Darnell Vidal DO Oct 24, 2017 00:35
[2017-10-18] MEDS ORDERED: LEVEMIR SQ (14:40)
[2017-10-18] MEDS ORDERED: NOVOLOGP2 SQ (14:40)
[2017-10-18] MEDS ORDERED: DOXY100C PO (14:46)
--- NOTE | 2017-10-18 15:10 | HHI.DS ---
Discharge Summary Admission Date Oct 13, 2017 at 10:25 Discharge Date: Oct 19, 2017 Admitting Diagnosis infected left foot ulcer rule out osteomyelitis (1) Diabetic foot ulcer Diagnosis: Principal ICD Codes: E11.621 - Type 2 diabetes mellitus with foot ulcer; L97.509 - Non- pressure chronic ulcer of other part of unspecified foot with unspecified severity Status: Acute (2) Diabetes mellitus type 2, noninsulin dependent Diagnosis: Secondary ICD Codes: E11.9 - Type 2 diabetes mellitus without complications Status: Chronic (3) Hypertension, benign Diagnosis: Secondary ICD Codes: I10 - Essential (primary) hypertension Status: Chronic Consultants Dr. Pace, Podiatry Dr. Rivera, ID Dr. Stevens, Vascular surgery Procedures 10/16/17 Bone biopsy to distal first metatarsal as well as proximal first metatarsal with Dr. Pace Brief History Mr. Daniels is a pleasant 62 y/o WM with diabetes mellitus, diabetic neuropathy, charcot foot, HTN and CKD stage 3. Pt reported to the ED at [facility] on 10/13/17 for left foot infection. Pt reported that he developed a sore on the medial aspect of his left foot around 3 weeks ago that he thought was related to irritation from his shoe. He states that he thought that this had mostly healed up until a few days ago when the wound opened up and pus started coming out. He was seen as an outpt by his PCP and by his [place], Dr. Banks who cultured the pus from the wound and recommended that he come to the hospital for evaluation for osteomyelitis and possible surgical intervention. He had a previous charcot foot surgery in 2013 in [place] and reports that he had some hardware placed at that time. Denies any fevers or chills, nausea/vomiting, chest pain or SOB. In the ED the foot wound was cultured again and he had blood cultures drawn. Pt was given a dose of Vancomycin and Cipro in the ED. Imaging Last Impressions Carotid Artery Ultrasound 10/15/17 0000 Signed Impressions: Service Date/Time: Sunday, October 15, 2017 15:45 - CONCLUSION: Mild bilateral noncalcified plaque formation hemodynamic profile characteristic of less than 50%% stenosis. Kapil Lorenzana MD Aorta w/Runoff CTA 10/15/17 0000 Signed Impressions: Service Date/Time: Sunday, October 15, 2017 18:53 - CONCLUSION: 1. Diffuse arteriosclerotic calcification throughout the vascular structures. 2. Multifocal stenotic lesions in the distal one third of the right thigh 50-70%% narrowing. 3. Trifurcation vessels are intact bilaterally and there is three-vessel runoff on the right and 2 vessel runoff on the left. Kapil Lorenzana MD Bone Scan Nuclear Medicine 10/14/17 1410 Signed Impressions: Service Date/Time: Saturday, October 14, 2017 14:10 - CONCLUSION: 1. The three-phase bone scan demonstrates increased blood flow, increased blood pool and increased tracer activity in the late images specifically involving the first left metatarsal. Osteomyelitis would be the primary consideration. However, recommend a gallium scan to evaluate the bone gallium ratio. 2. There is some increased delayed uptake at both mortise joints suggestive of primary bony degenerative changes. Tristan Davis MD Foot MRI 10/13/17 0000 Signed Impressions: Service Date/Time: October 10:35 - CONCLUSION: 1. Artifact from metallic hardware obscuring portions of the great toe metatarsal and adjacent soft tissue. Focal cutaneous ulceration/soft tissue defect is immediately medial to the great toe metatarsal shaft. Soft tissue enhancement in this region suggests cellulitis. The metatarsal and this area cannot be effectively evaluated for osteomyelitis due to artifact. Three-phase radionuclide bone scan may be beneficial for further evaluation. 2. Bony fusion across the talonavicular, calcaneocuboid, and subtalar joints as well as the fourth tarsometatarsal joint. Osteoarthritic findings the second, third, and fifth tarsometatarsal joints. Fer Mas MD PE at Discharge GENERAL: This is a well-nourished, well-developed patient, in no apparent distress. CARDIOVASCULAR: Regular rate and rhythm without murmurs, gallops, or rubs. RESPIRATORY: Clear to auscultation. Breath sounds equal bilaterally. No wheezes , rales, or rhonchi. GASTROINTESTINAL: Abdomen soft, non-tender, nondistended. Normal active bowel sounds MUSCULOSKELETAL: Extremities without clubbing, cyanosis, or edema. NEURO: Alert & Oriented x4 to person, place, time, situation. Moves all ext x4 Hospital Course Diabetic foot ulcer - Pt is a 62 y/o WM with diabetes mellitus, diabetic neuropathy, Charcot foot with hardware since 2012, HTN and CKD stage 3. - Pt reported to the ED at [facility] on 10/13/17 for left foot infection. Pt reported that he developed a sore on the medial aspect of his left foot around 3 weeks ago that he thought was related to irritation from his shoe. A few days ago when the wound opened up and pus started coming out. He was seen as an outpt by his PCP and by his [place], Dr. Banks who cultured the pus from the wound and recommended that he come to the hospital for evaluation for possible osteomyelitis and surgical intervention. - In the ED the foot wound was cultured again and he had blood cultures drawn. - Pt was given a dose of Vancomycin and Cipro in the ED. - MRI foot unable to determine osteo due to artifact from hardware - bone scan 3 phase ordered and concern for 1st metatarsal osteo - discussed with podiatry. consulted vascular for abnormal doppler and cta done. f/u reccs. - ID consulted for assistance given complexity of osteo, hardware, so far ngtd. abx on hold - Have looked for cx's taken last week by podiatry office and pcp office...no results yet - await podiatry bone bx today. - more aggressive bg control. podiatry concerned about opening up foot to remove hardware with hgba1c of 10.5. increased basal insulin 10/18/17 - bone biopsies obtain (10/16) - Dr. Vidal discussed case with pathology 10/18 reported no evidence of osteomyelitis although the fragments are small - need results of pathology to guide treatment, also d/w ID recommending doxycycline 100 mg PO BID for two weeks then follow up with Dr. Farah outpatient after DC - patient has had adverse reaction to doxycycline in the past (nausea and vomiting). Plan to start doxycycline tonight inpatient then DC in AM if patient able to tolerate. Diabetes mellitus type 2, noninsulin dependent - blood sugar improving since admission - poor control. hgba1c 10.5 - Levemir 20 units Q12H - SSI Hypertension, benign - Cont. home meds Pt Condition on Discharge: Stable Discharge Disposition: Discharge Home Discharge Instructions DIET: Follow Instructions for: Heart Healthy Diet, Diabetic Diet Activities you can perform: Regular-No Restrictions Other Activity Instructions: -Weight bearing as tolerated in surgical shoe Follow up Referrals: Infectious Disease - [address] Fraah PCP Follow-up - [address] Perera Podiatry - 1 Week @ [facility] with Silvano Banks DPM New Medications: Doxycycline Hyclate (Doxycycline Hyclate) 100 Mg Cap 100 MG PO BID for antibiotic, #28 CAP 0 Refills Insulin Detemir Inj (Levemir Inj) 1,000 unit/ 10 ML Vial 20 UNITS SQ Q12HR for blood glucose for 30 Days, INJECTION 0 Refills Do not mix with any other Insulin. Continued Medications: Amlodipine (Amlodipine) 5 Mg Tab 7.5 MG PO DAILY for Blood Pressure Management, TAB 0 Refills Aspirin (Aspirin) 81 Mg Chew 81 MG CHEW HS, TAB 0 Refills Dorzolamide-Timolol Opth Drops (Dorzolamide-Timolol Opth Drops) 22.3-6.8 Mg/Ml Soln 1 DROP EACH EYE BID for Glaucoma, BOTTLE 0 Refills Fenofibrate (Fenofibrate) 145 Mg Tab 145 MG PO HS, TAB 0 Refills Lisinopril (Lisinopril) 30 Mg Tab 30 MG PO DAILY for Blood Pressure Management, TAB 0 Refills Metoprolol Tartrate (Metoprolol Tartrate) 25 Mg Tab 12.5 MG PO BID, TAB 0 Refills Pravastatin (Pravastatin) 10 Mg Tab 10 MG PO HS for Cholesterol Management, TAB 0 Refills Discontinued Medications: Furosemide (Furosemide) 40 Mg Tab 40 MG PO DAILY, TAB 0 Refills Glimepiride (Glimepiride) 1 Mg Tab 0.5 MG PO DAILY for Blood Sugar Management, TAB 0 Refills Take with breakfast or first main meal Additional Information Patient examined. Assessment and plan formulated with Carol Diehl PA-C. I agree with the above. Carol Diehl Oct 18, 2017 15:10 Darnell Vidal DO Oct 24, 2017 00:37
[2017-10-18] MEDS ORDERED: INSU-115 (15:18)
[2017-10-18] MEDS: PRAVASTATIN SOD 10 MG TAB PO SCH (21:14)
[2017-10-18] MEDS: DOXYCYCLINE HYCLATE 100 MG CAP PO SCH (21:15)
[2017-10-18] MEDS: FENOFIBRATE 145 MG TAB PO SCH (21:15)
[2017-10-19] VITALS: BP 122/82; PULSE 67; RESP 20; TEMP 97.9; O2SAT 97
[2017-10-19 04:00] VITALS: BP 130/72; PULSE 67; RESP 21; TEMP 98.4; O2SAT 95
[2017-10-19] MEDS: SODIUM CHLOR 0.9% 1000 ML INJ 1,000 ML IV SCH (06:22)
[2017-10-19] MEDS: INSULIN ASPART SUPPLEMENTAL SCALE SQ SCH (08:00)
[2017-10-19 08:11] VITALS: BP 137/65; PULSE 69; RESP 20; TEMP 97.9; O2SAT 98
[2017-10-19] MEDS: amLODIPine BESYLATE 5 MG TAB PO SCH (08:26)
[2017-10-19] MEDS: METOPROLOL TARTRATE 25 MG TAB PO SCH (08:26)
[2017-10-19] MEDS: DOXYCYCLINE HYCLATE 100 MG CAP PO SCH (08:26)
[2017-10-19] MEDS: LISINOPRIL 10 MG TAB PO SCH (09:00)
[2017-10-19] MEDS: INSULIN DETEMIR 100 UNITS/ML VIAL SQ SCH (09:09)
[2017-10-19] MEDS: DORZOLAMIDE/TIMOLOL OPTH SOLN 10 ML BTL EACH EYE SCH (09:15)
== END 2017-10-19 10:28 | disposition home or self-care (01) | DRG 629 ==
LOC: NEPE 08:43 → NEDA 10:25 → N04A 14:00
PROVIDERS: ADMIT Hospitalist; ATTEND Hospitalist
PROC: 0QBP3ZX Excision of Left Metatarsal, Percutaneous Approach, Diagnostic (ICD-10-PCS; principal; 2017-10-16 22:25)
DX: E11.69 Type 2 diabetes mellitus with other specified complication (principal); M86.472 Chronic osteomyelitis with draining sinus, left ankle and foot; E11.22 Type 2 diabetes mellitus with diabetic chronic kidney disease; E11.621 Type 2 diabetes mellitus with foot ulcer; E11.40 Type 2 diabetes mellitus with diabetic neuropathy, unspecified; L97.529 Non-pressure chronic ulcer of other part of left foot with unspecified severity; I12.9 Hypertensive chronic kidney disease with stage 1 through stage 4 chronic kidney disease, or unspecified chronic kidney disease; N18.3 Chronic kidney disease, stage 3 (moderate); E78.5 Hyperlipidemia, unspecified; E11.51 Type 2 diabetes mellitus with diabetic peripheral angiopathy without gangrene; E11.610 Type 2 diabetes mellitus with diabetic neuropathic arthropathy; M21.42 Flat foot [pes planus] (acquired), left foot; J44.9 Chronic obstructive pulmonary disease, unspecified; E66.9 Obesity, unspecified; H40.9 Unspecified glaucoma; Z79.84 Long term (current) use of oral hypoglycemic drugs; Z68.37 Body mass index [BMI] 37.0-37.9, adult; Z87.891 Personal history of nicotine dependence; Z88.0 Allergy status to penicillin; Z88.1 Allergy status to other antibiotic agents
CPT/HCPCS: 73720; 75635; 78320; 78399; 80053; 82948; 83036; 83605; 85025; 85610; 85652; 85730; 86140; 86403; 87015; 87040; 87070; 87077; 87102; 87116; 87186; 87205; 87206; 88304; 88307; 88311; 93005; 93880; 93923; 96365; A9503; A9579; J0744; J1815; J2250; J3370; J7030; J7040; J7050; L3260; Q9967